=== PATIENT | female | born 1960 | race Caucasian/White ===

== ENCOUNTER → 2019-08-26 15:22 | Outpatient (CLI) | payer OTHER, SELFPAY ==
--- NOTE | ~2019-08-26 | MM_ITS ---
EXAMINATION: MM screening [facility] BI w danna HISTORY: Screening mammogram TECHNIQUE: Craniocaudal and mediolateral oblique 3-D tomosynthesis images were obtained and synthetic 2-D images were generated. CAD analysis was submitted and interpreted. COMPARISON: 07/26/2018 BREAST PARENCHYMAL COMPOSITION: There are scattered areas of fibroglandular density. FINDINGS: There is no evidence of suspicious mass, calcification, or architectural distortion to sugg est malignancy in either breast. There has been no suspicious interval change. IMPRESSION: 1. No mammographic evidence of malignancy. 2. Recommend routine screening mammography in one year. BI-RADS Category 1: Negative Reviewed, dictated and finalized at location D.
== END ==
PROVIDERS: Visit Provider Obstetrics & Gynecology
DX: Z12.31 Encounter for screening mammogram for malignant neoplasm of breast (principal)
CPT/HCPCS: 77063; 77067

== ENCOUNTER → 2020-10-27 15:52 | Outpatient (CLI) | payer OTHER, SELFPAY ==
--- NOTE | ~2020-10-27 | MM_ITS ---
EXAMINATION: MM screening [facility] BI w danna HISTORY: Screening TECHNIQUE: Craniocaudal and mediolateral oblique 3-D tomosynthesis images were obtained and synthetic 2-D images were generated. CAD analysis was submitted and interpreted. COMPARISON: Comparison to multiple prior studies sequentially, with oldest reviewed study dated 07/26. BREAST PARENCHYMAL COMPOSITION: There are scattered areas of fibroglandular density. FINDINGS: There is no evidence of suspicious mass, calcification, or architectural distortion to sugg est malignancy in either breast. There has been no suspicious interval change. IMPRESSION: 1. No mammographic evidence of malignancy. 2. Recommend routine screening mammography in one year. BI-RADS Category 1: Negative Reviewed, dictated and finalized at location A.
== END ==
PROVIDERS: PCP Internal Medicine; Visit Provider Obstetrics & Gynecology
DX: Z12.31 Encounter for screening mammogram for malignant neoplasm of breast (principal)
CPT/HCPCS: 77063; 77067

== ENCOUNTER 2022-05-27 08:31 | Emergency (ER) | payer OTHER, SELFPAY ==
--- NOTE | ~2022-05-27 | XR_ITS ---
EXAMINATION: XR chest 2V DATE: 05/27/2022 09:08 INDICATION: Cough and wheezing TECHNIQUE: Frontal and lateral views of the chest are obtained COMPARISON: None available FINDINGS: The lungs are free of acute opacities. No pleural effusion or pneumothorax. The cardiomedia stinal silhouette is normal. There are bridging osteophytes at multiple levels in the spine, consiste nt with diffuse idiopathic skeletal hyperostosis (DISH). IMPRESSION: 1. No acute cardiopulmonary abnormality. Reviewed, dictated and finalized at location A. S AND SERVICE ADVISOR
[2022-05-27 08:46] VITALS: BP 121/81; PULSE 85; RESP 16; TEMP 36.2; O2SAT 100
--- NOTE | 2022-05-27 08:50 | ED.URI ---
HPI - URI/Sore Throat General Chief Complaint: Upper Respiratory Infection Stated Complaint: HEADACHE/NAUSEA/NOT EATING/DIARRHEA/COUGH Time Seen by Provider: 05/27/22 08:50 Source: patient Mode of arrival: ambulatory Limitations: no limitations History of Present Illness HPI Narrative: Ms. Daniel is a 62-year-old female patient presenting to the clinic today with complaints of headache, nausea, decreased appetite, diarrhea, and cough x4 days. She has also felt fevers and has had some body aches. States she did have a really sore throat however that has improved. She has had a history of asthma in the past. She is a nonsmoker. MD elicited complaint: fever, cough, sore throat, rhinorrhea and nasal congestion Related Data Home Medications Medication Instructions Recorded Confirmed ascorbic acid (vitamin C) 1,000 mg 1 g PO DAILY 09/07/20 05/27/22 tablet atorvastatin 10 mg tablet 10 mg PO DAILY 09/07/20 05/27/22 lisinopril 5 mg tablet 5 mg PO DAILY 09/07/20 05/27/22 loteprednol etabonate 0.2 % eye 1 drp EACH EYE BID 09/07/20 05/27/22 drops,suspension (Alrex) dhlyglpt-whr-avaoa acid 0.4 1 tablet PO DAILY 09/07/20 05/27/22 mg-lycopene 300 mcg-lutein 250 mcg tablet (Centrum Silver) soluble corn fiber 5 gram/5.6 gram 5 g PO USEASDIRECTD 09/07/20 05/27/22 oral powder (FiberCel) spironolactone 100 mg tablet 100 mg PO DAILY 09/07/20 05/27/22 vit C 250 mg-vit E 90 mg-zinc 40 1 tablet PO BID 09/07/20 05/27/22 mg-copper 1 ab-esvtjw-azwttr capsule (PreserVision AREDS-2) bimatoprost 0.03 % eye drops 1 drp EACH EYE USEASDIRECTD 05/27/22 05/27/22 timolol maleate 0.5 % eye drops 1 drp EACH EYE USEASDIRECTD 05/27/22 05/27/22 Allergies Allergy/AdvReac Type Severity Reaction Status Date / Time hydrocodone Allergy Hypotension Verified 05/27/22 08:38 Review of Systems Review of Systems: Pertinent positives per HPI. Patient denies any fever, chills, rash, visual changes, dizziness, shortness of breath, chest pain, palpitations, nausea, vomiting, diarrhea, constipation, abdominal pain, or any urinary issues. [facility] Past Medical History Medical History Arthritis Hypertension Pre-diabetes Surgical History Surgical History H/O hernia repair H/O plastic surgery x 2 2007- breast lift 2009 History of delivery x 1 1984 History of gastric bypass 2004 [place] teeth removed x 1 Family History Family History Father Malignant neoplasm of prostate Diabetes mellitus Hypertension Heart disease Cerebrovascular accident Mother Diabetes mellitus Alzheimer disease Sibling Diabetes mellitus Hypertension Grandparent Diabetes mellitus Social History Social History Smoking status: Never smoker Alcohol intake: never Substance use: never Comments At the time of my signature, I reviewed and agree with the nursing past medical, surgical, social, and family history. There is no relevant family history pertinent to the patient complaint. Exam Narrative: General: Well-developed, overweight, in no apparent distress Head: Normocephalic, atraumatic Eyes: Pupils equally round and reactive to light bilaterally, EOM intact, sclera and conjunctive clear, no discharge, lids normal Ears: TMs intact and dull ear canals clear, no drainage, grossly hearing normal. Nose: Nares patent, clear nasal discharge, moderate inflammation, no sinus tenderness. Mouth: Oral pharynx without lesions or masses, good dentition, MMM. Postnasal drip Neck: Supple, trachea midline, mild enlargement of anterior cervical nodes, no thyroid masses or goiter palpable. Cardio: Regular rate and rhythm, s1 and s2 normal, no murmur appreciated. Resp: Inspiratory and expiratory rhonchi
[2022-05-27] MEDS: ALBUTEROL SULFATE NEB 2.5 MG/3 ML INH INHALATION (09:12)
[2022-05-27] MEDS: IPRATROPIUM BR 0.02% INH SOLN 0.5 MG/2.5 ML VIAL INHALATION (09:12)
== END 2022-05-27 09:43 | disposition home or self-care (01) ==
PROVIDERS: Emergency Provider Nurse Practitioner Family; PCP Hospitalist
DX: J40 Bronchitis, not specified as acute or chronic (principal); B34.9 Viral infection, unspecified; J06.9 Acute upper respiratory infection, unspecified; Z20.822 Contact with and (suspected) exposure to COVID-19; F41.9 Anxiety disorder, unspecified; I10 Essential (primary) hypertension; R73.03 Prediabetes; Z98.84 Bariatric surgery status
CPT/HCPCS: 71046; 87426; 87804; 94640; 99213; C9803; G0463

== ENCOUNTER → 2023-05-21 09:29 | Outpatient (CLI) | payer OTHER, SELFPAY ==
--- NOTE | ~2023-05-21 | XR_ITS ---
AP view of the pelvis and AP and lateral views of the lateral hips Clinical history: Pain Findings: No acute fracture or dislocation is seen. Osseous alignment is anatomic. There is minimal d egenerative change of both hip joints. Soft tissues are unremarkable. Impression: Minimal degenerative change of both hip joints. Reviewed, dictated and finalized at location . ER BREWER Impression: Minimal degenerative change of both hip joints.
== END ==
PROVIDERS: PCP Hospitalist; Visit Provider Anesthesiology Pain Medicine
DX: M16.0 Bilateral primary osteoarthritis of hip (principal)
CPT/HCPCS: 73521

== ENCOUNTER 2023-11-17 11:57 | Emergency (ER) | payer OTHER, SELFPAY ==
--- NOTE | ~2023-11-17 | XR_ITS ---
[[id number] ] INDICATION: Left rib pain TECHNIQUE: Frontal projection of the upper left ribs, frontal projection of the lower left ribs, obli que projection of all the left ribs, frontal inspiratory chest x-ray for interpretation. FINDINGS: There are no displaced rib fractures identified. There are no soft tissue abnormality see n. The lungs are clear. IMPRESSION: 1:No acute displaced rib fractures. Reviewed, dictated and finalized at location B.
[2023-11-17 12:03] VITALS: BP 114/67; PULSE 87; RESP 16; TEMP 36.1; O2SAT 100
--- NOTE | 2023-11-17 12:30 | ED.CHESTPAIN ---
HPI - Chest Pain General Stated Complaint: Left Side Pain Time Seen by Provider: 11/17/23 12:05 Source: patient Mode of arrival: ambulatory Limitations: no limitations History of Present Illness HPI narrative: Debo is a 63-year-old female patient presenting to the clinic today with complaints of left rib pain after fall. She reports she fell over a rolled up rug in her hallway and landed on the left ribs. Is having pain to the anterior/lateral lower left ribs. Did initially have a lot of pain with the bleeding however that has improved but is still having pain and having this set up in a chair when sleeping as she cannot lay on that side. Related Data Home Medications Medication Instructions Recorded Confirmed ascorbic acid (vitamin C) 1,000 mg 1 g PO DAILY 09/07/20 05/27/22 tablet atorvastatin 10 mg tablet 10 mg PO DAILY 09/07/20 05/27/22 lisinopril 5 mg tablet 5 mg PO DAILY 09/07/20 05/27/22 loteprednol etabonate 0.2 % eye 1 drp EACH EYE BID 09/07/20 05/27/22 drops,suspension (Alrex) ngztszwl-fbe-upzyv acid 0.4 1 tablet PO DAILY 09/07/20 05/27/22 mg-lycopene 300 mcg-lutein 250 mcg tablet (Centrum Silver) soluble corn fiber 5 gram/5.6 gram 5 g PO USEASDIRECTD 09/07/20 05/27/22 oral powder (FiberCel) spironolactone 100 mg tablet 100 mg PO DAILY 09/07/20 05/27/22 vit C 250 mg-vit E 90 mg-zinc 40 1 tablet PO BID 09/07/20 05/27/22 mg-copper 1 kw-bqhjox-fmpocs capsule (PreserVision AREDS-2) bimatoprost 0.03 % eye drops 1 drp EACH EYE USEASDIRECTD 05/27/22 05/27/22 timolol maleate 0.5 % eye drops 1 drp EACH EYE USEASDIRECTD 05/27/22 05/27/22 Allergies Allergy/AdvReac Type Severity Reaction Status Date / Time hydrocodone Allergy Hypotension Verified 11/17/23 12:40 Review of Systems Review of Systems: Pertinent positives per HPI. Patient denies any fever, chills, rash, headache, visual changes, dizziness, cough, runny nose, sore throat, shortness of breath, chest pain, palpitations, nausea, vomiting, diarrhea, constipation, abdominal pain, or any urinary issues. COUNTS INCLUDE 234 BEDS AT THE [facility] Past Medical History Medical History Arthritis Hypertension Pre-diabetes Surgical History Surgical History H/O hernia repair H/O plastic surgery x 2 2007- breast lift 2009 History of delivery x 1 1984 History of gastric bypass 2004 [place] teeth removed x 1 Family History Family History Father Malignant neoplasm of prostate Diabetes mellitus Hypertension Heart disease Cerebrovascular accident Mother Diabetes mellitus Alzheimer disease Sibling Diabetes mellitus Hypertension Grandparent Diabetes mellitus Social History Social History Smoking status: Never smoker Alcohol intake: never Substance use: never Living arrangements: with family Comments At the time of my signature, I reviewed and agree with the nursing past medical, surgical, social, and family history. There is no relevant family history pertinent to the patient complaint. Exam Narrative: General: Well-developed, well nourished, in no apparent distress Head: Normocephalic, atraumatic. Chest wall: No bruising or swelling noted, tenderness to palpation over the left anterior/lateral lower ribs, even rise and fall of the chest wall with respirations Cardio: Regular rate and rhythm, s1 and s2 normal, no murmur appreciated. Resp: Clear to auscultation bilaterally, no rhonchi, rales, wheezing or rubs. Extremities: No deformity, no edema, no cyanosis, capillary refill less than 2 seconds, peripheral pulses palpable and strong. Integumentary: [place], warm, and dry, intact without lesion, no rashes. Course Course Emergency Course: Portions of this record may have been created with whitney
== END 2023-11-17 12:44 | disposition home or self-care (01) ==
PROVIDERS: Emergency Provider Nurse Practitioner Family; PCP Hospitalist
DX: S20.222A Contusion of left back wall of thorax, initial encounter (principal); W18.09XA Striking against other object with subsequent fall, initial encounter; M19.90 Unspecified osteoarthritis, unspecified site; I10 Essential (primary) hypertension; R73.03 Prediabetes; Z98.84 Bariatric surgery status
CPT/HCPCS: 71101; 99213; G0463

== ENCOUNTER 2024-04-26 11:57 | Emergency (ER) | payer OTHER, SELFPAY ==
--- NOTE | 2024-04-26 11:59 | ED_ITS ---
HPI - URI/Sore Throat General Chief Complaint: Upper Respiratory Infection Stated Complaint: sorethroat,lt ear pain Time Seen by Provider: 04/26/24 11:59 Source: patient Mode of arrival: ambulatory Limitations: no limitations History of Present Illness HPI Narrative: Cira is a 64-year-old female patient presenting to the clinic today with complaints of left-sided sore throat, left ear pain, and left-sided facial pain since this morning. She reports she does not feels though it strep. No fever, rash, chills, body aches, or other URI symptoms. States that the left side of her head feels bruised. Has pain and sensitivity with touch around her left ear, left forehead, and left scalp. Denies headache or visual changes at this time. MD elicited complaint: sore throat and other (Ear pain, facial pain) Related Data Home Medications Medication Instructions Recorded Confirmed ascorbic acid (vitamin C) 1,000 mg 1 g PO DAILY 09/07/20 05/27/22 tablet atorvastatin 10 mg tablet 10 mg PO DAILY 09/07/20 05/27/22 lisinopril 5 mg tablet 5 mg PO DAILY 09/07/20 05/27/22 loteprednol etabonate 0.2 % eye 1 drp EACH EYE BID 09/07/20 05/27/22 drops,suspension (Alrex) uexicurj-oxw-myufa acid 0.4 1 tablet PO DAILY 09/07/20 05/27/22 mg-lycopene 300 mcg-lutein 250 mcg tablet (Centrum Silver) soluble corn fiber 5 gram/5.6 gram 5 g PO USEASDIRECTD 09/07/20 05/27/22 oral powder (FiberCel) spironolactone 100 mg tablet 100 mg PO DAILY 09/07/20 05/27/22 vit C 250 mg-vit E 90 mg-zinc 40 1 tablet PO BID 09/07/20 05/27/22 mg-copper 1 jc-qelzfg-zxxker capsule (PreserVision AREDS-2) bimatoprost 0.03 % eye drops 1 drp EACH EYE USEASDIRECTD 05/27/22 05/27/22 timolol maleate 0.5 % eye drops 1 drp EACH EYE USEASDIRECTD 05/27/22 05/27/22 Allergies Allergy/AdvReac Type Severity Reaction Status Date / Time hydrocodone Allergy Hypotension Verified 11/17/23 12:40 Review of Systems Review of Systems: Pertinent positives per HPI. Patient denies any fever, chills, rash, headache, visual changes, dizziness, cough, shortness of breath, chest pain, palpitations, nausea, vomiting, diarrhea, constipation, abdominal pain, or any urinary issues. [facility] Past Medical History Medical History Arthritis Hypertension Pre-diabetes Surgical History Surgical History H/O hernia repair H/O plastic surgery x 2 2007- breast lift 2009 History of delivery x 1 1984 History of gastric bypass 2005 [place] teeth removed x 1 Family History Family History Father Malignant neoplasm of prostate Diabetes mellitus Hypertension Heart disease Cerebrovascular accident Mother Diabetes mellitus Alzheimer disease Sibling Diabetes mellitus Hypertension Grandparent Diabetes mellitus Social History Social History Smoking status: Never smoker Alcohol intake: never Substance use: never Living arrangements: with family Comments At the time of my signature, I reviewed and agree with the nursing past medical, surgical, social, and family history. There is no relevant family history pertinent to the patient complaint. Exam Narrative: General: Well-developed, well nourished, in no apparent distress Head: Normocephalic, atraumatic, no rash, tender to palpation over the external anterior and posterior ear, left side forehead, around left orbit, and to the left side of the scalp. Eyes: Pupils equally round and reactive to light bilaterally, EOM intact, sclera and conjunctive clear, no discharge, lids normal Ears: TMs intact and clear, ear canals clear, no drainage, grossly hearing normal. Nose: Nares patent, no discharge, no inflammation, no sinus tenderness. Mouth: Oral pharynx without lesions or masses, good dentition, MMM. Neck: Supple, trachea midline, no enlargement of anterior or posterior cervical nodes, no thyroid masses or goiter palpable. Cardio: Regular rate and rhythm, s1 and s2 normal, no murmur appreciated. Resp: Clear to auscultation bilaterally, no rhonchi, rales, wheezing or rubs Course Course Emergency Course: Portions of this record may have been created with voice recognition software. Level of Care: Express Care Visit Vital Signs Vital signs: Vital Signs Temperature 36.3 C L 04/26/24 12:19 Pulse Rate 85 04/26/24 12:19 Respiratory Rate 16 04/26/24 12:19 Blood Pressure 114/79 04/26/24 12:19 Pulse Oximetry 100 04/26/24 12:19 Temperature 36.3 C L 04/26/24 12:19 Pulse Rate 85 04/26/24 12:19 Respiratory Rate 16 04/26/24 12:19 Blood Pressure 114/79 04/26/24 12:19 Pulse Oximetry 100 04/26/24 12:19 Vital signs reviewed MDM - URI/Sore Throat MDM Narrative Medical decision making narrative: At the time of visit patient is resting comfortably on the exam table. Patient appears to be nontoxic. Plan: Patient declined strep test. No obvious rash but patient is experiencing some facial paresthesia. Will send in prescription for prednisone and have her follow-up with her primary care doctor next week. She is to go to the emergency room if symptoms worsen. Supportive measures were discussed with the patient and they voiced understanding discharge instructions and agrees to treatment plan. Return precautions reviewed Differential Diagnosis Differential diagnosis: Likely upper respiratory infection, otitis media, sinusitis (Shingles, paresthesia, mastoiditis, otitis externa, dental infection), viral infection, bronchitis, influenza, pharyngitis and other (COVID) Discharge Plan Discharge Clinical Impression: Facial paresthesia Patient Disposition: Home, Self-Care Condition: Stable Instructions: Antibiotic Form, Paresthesia (ED) Additional Instructions: Take prescription medications only as prescribed-redness Increase fluids and stay well hydrated Tylenol/motrin for pain/fever Flonase and OTC antihistamines such as Claritin or Zyrtec as directed Go to the ED if you develop a worsening in your condition- high fever not controlled by Tylenol or Motrin, vision changes, worsening pain, dehydration, weakness, lethargy, shortness of breath, or chest pain. Follow up with your PCP in 3-5 days if symptoms persist. Prescriptions: New prednisone 20 mg tablet 40 mg PO DAILY 5 Days Qty: 10 0RF No Action bimatoprost 0.03 % drops 1 drp EACH EYE USEASDIRECTD timolol maleate 0.5 % drops 1 drp EACH EYE USEASDIRECTD azithromycin 250 mg tablet See Rx Instructions .ROUTE .COMPLEX Qty: 6 0RF Rx Instructions: For 250 mg dose pack: take 500 mg today (day 1), then 250 mg for 4 days (days 2-5) prednisone 20 mg tablet 40 mg PO DAILY 5 Days Qty: 10 0RF albuterol sulfate 90 mcg/actuation HFA aerosol inhaler 2 puff inhalation Q4-6H PRN (Reason: shortness of breath or wheezing) 30 Days Qty: 8.5 0RF atorvastatin 10 mg tablet 10 mg PO DAILY lisinopril 5 mg tablet 5 mg PO DAILY PreserVision AREDS-2 250-90-40-1 mg capsule 1 tablet PO BID ascorbic acid (vitamin C) 1,000 mg tablet 1 g PO DAILY FiberCel 5 gram/5.6 gram powder 5 g PO USEASDIRECTD Centrum Silver 0.4-300-250 mg-mcg-mcg tablet 1 tablet PO DAILY spironolactone 100 mg tablet 100 mg PO DAILY Alrex 0.2 % drops,suspension 1 drp EACH EYE BID Follow-up/Referrals: Hannah,MD Daniel [Primary Care Provider] - Time of Disposition: 12:30 Quality NIHSS Nursing Documentation ED NIHSS nursing documentation: reviewed/agree
[2024-04-26 12:19] VITALS: BP 114/79; PULSE 85; RESP 16; TEMP 36.3; O2SAT 100
== END 2024-04-26 12:35 | disposition home or self-care (01) ==
PROVIDERS: Emergency Provider Nurse Practitioner Family; PCP Hospitalist
DX: R20.2 Paresthesia of skin (principal); I10 Essential (primary) hypertension; R73.03 Prediabetes; M19.90 Unspecified osteoarthritis, unspecified site; Z98.84 Bariatric surgery status
CPT/HCPCS: 99213; G0463

== ENCOUNTER 2024-10-12 09:33 | Emergency (ER) | payer OTHER, SELFPAY ==
[2024-10-12 09:38] VITALS: BP 112/73; PULSE 78; RESP 18; TEMP 36.3; O2SAT 100
--- NOTE | 2024-10-12 09:38 | ED_ITS ---
HPI - Ear Problem General Chief complaint: Ear Stated complaint: Ear Pain Source: patient and RN notes reviewed Mode of arrival: ambulatory Limitations: no limitations History of Present Illness HPI Narrative: 64year-old female presents Express Care complaining of left ear pain for 1 week. Patient denies any fevers, body aches, chills, upper respiratory symptoms. Patient is using mwjp-apa-ovblwem ear drops as needed for pain along with Tylenol, ibuprofen, as her as needed tramadol with some relief. Patient said this is occurred before has subsided on its own. Patient denies any discharge from her ear.. Patient denies any dizziness, lightheadedness, or syncope. Patient feels like the pain is now her left jaw all and behind her left ear. Patient just saw the dentist did not believe it was a dental problem. Related Data Home Medications ?Medication ?Instructions ?Recorded ?Confirmed ?Last Taken ?Type ascorbic acid (vitamin C) 1,000 mg 1 g PO DAILY 09/07/20 04/26/24 Unknown History tablet atorvastatin 10 mg tablet 40 mg PO DAILY 09/07/20 10/12/24 Unknown History loteprednol etabonate 0.2 % eye 1 drp EACH EYE BID 09/07/20 10/12/24 Unknown History drops,suspension (Alrex) cjqxhqhl-wgb-arbzf acid 0.4 1 tablet PO DAILY 09/07/20 10/12/24 Unknown History mg-lycopene 300 mcg-lutein 250 mcg tablet (Centrum Silver) soluble corn fiber 5 gram/5.6 gram 5 g PO USEASDIRECTD 09/07/20 04/26/24 Unknown History oral powder (FiberCel) vit C 250 mg-vit E 90 mg-zinc 40 1 tablet PO BID 09/07/20 10/12/24 Unknown History mg-copper 1 hw-bltywb-mjtoqm capsule (PreserVision AREDS-2) bimatoprost 0.03 % eye drops 1 drp EACH EYE USEASDIRECTD 05/27/22 10/12/24 Unknown History timolol maleate 0.5 % eye drops 1 drp EACH EYE USEASDIRECTD 05/27/22 10/12/24 Unknown History nifedipine 30 mg tablet,extended 30 mg PO DAILY 04/26/24 10/12/24 Unknown History release tirzepatide 15 mg/0.5 mL 15 mg subcut WEEKLY 04/26/24 10/12/24 Unknown History subcutaneous pen injector (Jabariunmalcolmro) ascorbic acid (vitamin C) 1,000 mg 1 g PO DAILY 10/12/24 10/12/24 Unknown History tablet (C-1000) polydextrose 2.5 gram chewable 1,000 g PO DAILY 10/12/24 10/12/24 Unknown History tablet (FiberWell) Allergies Allergy/AdvReac Type Severity Reaction Status Date / Time hydrocodone Allergy Hypotension Verified 10/12/24 09:38 NSAIDS (Non-Steroidal AdvReac Unknown Verified 10/12/24 09:38 Anti-Inflamma dermabond Allergy Mild Unknown Uncoded 10/12/24 09:41 Review of Systems Review of Systems: CONSTITUTIONAL: Denies fever, chills, or sweats. EYES: Denies visual changes, redness, or discharge. ENT: Denies rhinorrhea, congestion, sore throat,. Positive for otalgia CARDIOVASCULAR: Denies chest pain, palpitations, or edema. RESPIRATORY: Denies cough or dyspnea. GASTROINTESTINAL: Denies abdominal pain, nausea, vomiting, or diarrhea. GENITOURINARY: Denies dysuria or hematuria. SKIN: Denies rash or itching. MUSCULOSKELETAL: Denies back pain, joint pain, or myalgia. NEUROLOGIC: Denies headache, numbness, or weakness. PSYCHIATRIC: Denies anxiety or depression. All other systems reviewed are negative, except as documented in HPI. [facility] Past Medical History Medical History Arthritis Pre-diabetes Hypertension Surgical History Surgical History History of gastric bypass 2005 H/O hernia repair H/O plastic surgery x 2 2007- breast lift 2009 Pala teeth removed x 1 History of delivery x 1 1983 Family History Family History Father Malignant neoplasm of prostate Diabetes mellitus Hypertension Heart disease Cerebrovascular accident Mother Diabetes mellitus Alzheimer disease Sibling Diabetes mellitus Hypertension Grandparent Diabetes mellitus Social History Social History Smoking status: Never smoker Alcohol intake: never Substance use: never Living arrangements: with family Comments At the time of my signature, I reviewed and agree with the nursing past medical, surgical, social, and family history. There is no relevant family history pertinent to the patient complaint. Exam Narrative: GENERAL: This is a well-nourished, well-developed adult, in no apparent distress. They are non ill-appearing, nontoxic appearing. HEAD: normocephalic, atraumatic. EYES: Sclera clear/white. Conjunctiva normal. Vision is grossly intact. Extraocular movements intact EARS: External ears normal, auditory canals clear and without drainage, TMs normal without perforation. Hearing grossly intact. No swelling, redness,or tenderness to the mastoid. NOSE: External nose normal with no obvious nasal discharge, nasal turbinates without redness, no rhinorrhea. THROAT: Mucous membranes moist, posterior pharynx clear, without erythema or swelling. Uvula midline. NECK: Neck supple, non-tender without lymphadenopathy, masses or thyromegaly. CARDIOVASCULAR: Regular rate and rhythm without murmurs, gallops, or rubs. RESPIRATORY: Clear to auscultation. Breath sounds equal bilaterally. No wheezes, rales, or rhonchi. SKIN: warm, Dry, intact with no suspicious lesions or rash, good texture and turgor. NEURO: awake, alert, and oriented to person, place and time. There were no obvious focal neurologic abnormalities. EXTREMITIES: No joint tenderness, effusion, or edema noted. Course Course Emergency Course: Portions of this record may have been created with voice recognition software Level of Care: Express Care Visit Vital Signs Vital signs: Vital Signs Temperature 97.4 F L 10/12/24 09:38 Pulse Rate 78 10/12/24 09:38 Respiratory Rate 18 10/12/24 09:38 Blood Pressure 112/73 10/12/24 09:38 Pulse Oximetry 100 10/12/24 09:38 Oxygen Delivery Room Air 10/12/24 09:38 Temperature 97.4 F L 10/12/24 09:38 Pulse Rate 78 10/12/24 09:38 Respiratory Rate 18 10/12/24 09:38 Blood Pressure 112/73 10/12/24 09:38 Pulse Oximetry 100 10/12/24 09:38 Oxygen Delivery Room Air 10/12/24 09:38 Reviewed Medical Decision Making MDM Narrative Medical decision making narrative: No evidence of infection in the patient's left ear. It is possible her symptoms may be signs of TMJ to the left jaw. Patient just saw the dentist within not do any imaging of her jaw. Advised patient to follow-up with ENT given the recurrence of pain to the same area. Discussed physical exam findings. Advised supportive measures and signs/symptoms to go to the ER. Pt is appropriate for outpt treatment and f/u. Differential Diagnosis Differential Diagnosis: Otitis media, otitis externa, TMJ Vital Signs Vital Signs: Vital Signs Temperature 97.4 F L 10/12/24 09:38 Pulse Rate 78 10/12/24 09:38 Respiratory Rate 18 10/12/24 09:38 Blood Pressure 112/73 10/12/24 09:38 Pulse Oximetry 100 10/12/24 09:38 Oxygen Delivery Room Air 10/12/24 09:38 Temperature 97.4 F L 10/12/24 09:38 Pulse Rate 78 10/12/24 09:38 Respiratory Rate 18 10/12/24 09:38 Blood Pressure 112/73 10/12/24 09:38 Pulse Oximetry 100 10/12/24 09:38 Oxygen Delivery Room Air 10/12/24 09:38 Critical Care Time Critical Care Time Critical Care Time: No Discharge Plan Discharge Clinical Impression: Ear pain, left Patient Disposition: Home Condition: Stable Instructions: Temporomandibular Disorder (ED), Earache (ED) Additional Instructions: There is no signs of infection in your ear. Please follow-up with an ENT for further evaluation of your pain. May take Tylenol or ibuprofen as needed for pain. You may use clxu-ltk-nnsvjsw earache drops as needed for pain. Please follow-up with your primary care provider in 1 week. If your symptoms worsen you have any other concerns please go to the ER immediately. Patient Language: Greek Prescriptions: No Action bimatoprost 0.03 % drops 1 drp EACH EYE USEASDIRECTD timolol maleate 0.5 % drops 1 drp EACH EYE USEASDIRECTD albuterol sulfate 90 mcg/actuation HFA aerosol inhaler 2 puff inhalation Q4-6H PRN (Reason: shortness of breath or wheezing) 30 Days Qty: 8.5 0RF prednisone 20 mg tablet 40 mg PO DAILY 5 Days Qty: 10 0RF nifedipine 30 mg tablet extended release 30 mg PO DAILY Mounjaro 15 mg/0.5 mL pen injector 15 mg SUBCUT WEEKLY ascorbic acid (vitamin C) [C-1000] 1,000 mg tablet 1 g PO DAILY FiberWell 2.5 gram tablet,chewable 1,000 g PO DAILY atorvastatin 10 mg tablet 40 mg PO DAILY PreserVision AREDS-2 250-90-40-1 mg capsule 1 tablet PO BID ascorbic acid (vitamin C) 1,000 mg tablet 1 g PO DAILY FiberCel 5 gram/5.6 gram powder 5 g PO USEASDIRECTD Centrum Silver 0.4-300-250 mg-mcg-mcg tablet 1 tablet PO DAILY Alrex 0.2 % drops,suspension 1 drp EACH EYE BID Follow-up/Referrals: Nati Falcon MD [Physician] - (chronic left pain without infection) PHYSICIAN,MANAGER OF [employer] [Primary Care Provider] - Time of Disposition: 09:59
== END 2024-10-12 10:09 | disposition home or self-care (01) ==
DX: H92.02 Otalgia, left ear (principal); I10 Essential (primary) hypertension; M19.90 Unspecified osteoarthritis, unspecified site; R73.03 Prediabetes; Z98.84 Bariatric surgery status
CPT/HCPCS: 99211; G0463

== ENCOUNTER 2025-01-12 13:01 | Emergency (ER) | payer MEDICARE, SELFPAY ==
[2025-01-12] VITALS (12 sets, daily range): BP systolic 104–129; BP diastolic 52–73; PULSE 66–92; RESP 12–21; TEMP 36.6; O2SAT 100
--- NOTE | ~2025-01-12 | XR_ITS ---
XR wrist RT 2V 01/12/2025 15:33 Indication: Right wrist pain after fall Procedure: 2 views right wrist Comparison: No prior studies for comparison. Findings: There is an impaction fracture which is comminuted involving the distal radial metaphysis. Mild dorsal tilt. There is ulnar styloid avulsion fracture. Osteopenia. Mild polyarticular osteoarthr itis. Impression: 1: Comminuted displaced impaction fracture distal radial metaphysis. 2: Ulnar styloid avulsion fracture. Reviewed, dictated and finalized at location A. Impression: 1: Comminuted displaced impaction fracture distal radial metaphysis. 2: Ulnar styloid avulsion fracture.
--- NOTE | ~2025-01-12 | XR_ITS ---
[id number] 01/12/2025 15:34 Indication: Left leg pain after fall Procedure: 2 views left knee Comparison: No prior studies for comparison. Findings: There is an oblique displaced distal femoral diaphyseal fracture with dorsal angulation and ventral displacement. Large amount ventral soft tissue swelling. There is a Left knee arthroplasty w hich is well seated. Impression: 1: Old oblique displaced distal femoral diaphyseal fracture with dorsal angulation and ventral displa cement. Reviewed, dictated and finalized at location A. Impression: 1: Old oblique displaced distal femoral diaphyseal fracture with dorsal angulat ion and ventral displacement.
--- NOTE | ~2025-01-12 | CT_ITS ---
History: Fall PROCEDURE: CT cervical spine without intravenous contrast. PROCEDURE:CT head without contrast. COMPARISON: None TECHNIQUE: Multiple contiguous axial images of the CERVICAL SPINE were performed without the administration of i ntravenous contrast. DLP: 238.6 mGy-cm TECHNIQUE: Axial imaging of the HEAD performed from the skull base to the vertex without IV contrast. Sagittal a nd coronal reformations obtained. DLP: 605 mGy-cm FINDINGS CT CERVICAL SPINE: Straightening and slight reversal of the normal curvature of the cervical spine is identified, likely muscular in origin. Degenerative disease is present, with osteophyte formation, disc space narrowing, endplate changes an d vacuum phenomena. Subchondral cyst formation is also noted, as is severe facet arthropathy. No acute fractures are present. The bilateral lung apices are unremarkable. No soft tissue abnormality is appreciated The airway is patent. FINDINGS CT HEAD: The ventricles are normal in size, shape and position. There is no mass, mass effect or midline shift. There is no abnormal extra-axial fluid collection or intracranial hemorrhage. Visualized paranasal sinuses are clear. The mastoid air cells are well aerated. No acute displaced fractures within the overlying cranium. IMPRESSION CT CERVICAL SPINE: Straightening and slight reversal of the normal curvature of the cervical spine, likely muscular in o rigin. Degenerative disease, without acute fracture. IMPRESSION CT HEAD: No acute intracranial hemorrhage or suspicious mass effect. Reviewed, dictated and finalized at location A. IMPRESSION CT CERVICAL SPINE: Straightening and slight reversal of the normal curvature of the cervical spine , likely muscular in origin. Degenerative disease, without acute fracture. IMPRESSION CT HEAD: No acute intracranial hemorrhage or suspicious mass effect. IMPRESSION CT CERVICAL SPINE: Straightening and slight reversal of the normal curvature of the cervical spine , likely muscular in origin. Degenerative disease, without acute fracture. IMPRESSION CT HEAD: No acute intracranial hemorrhage or suspicious mass effect.
--- OUTSIDE RECORDS SUMMARY | 2025-01-12 14:04 | XMS_ITS | Referral Summary ---
Author Organization [facility] Address [address] [place] [id number] Care Team Providers Care Strapper And Buffer Name Role Phone Arcadio Kinney Unavailable Alicia Long Unavailable [phone] Daniel Young MD Primary Care Provider [phone] Encounters Date Type Department Care Team Description 01/07/2025 Results Follow-Up [facility] [address] [phone] Quique Flores NP Comprehensive metabolic panel, 48 HR Holter Monitor 01/06/2025 2:20 PM CDT - 01/06/2025 11:59 PM CDT Hospital Encounter [facility] [address] [place] [address] Encounter for screening mammogram for malignant neoplasm of breast Discharge Disposition: Discharge to home or self care 01/01/2025 12:15 PM CDT - 01/01/2025 11:59 PM CDT Hospital Encounter [facility] [address] [place] [address] Fluttering heart Discharge Disposition: Discharge to home or self care 12/24/2024 1:00 PM CDT Office Visit [facility] [address] [phone] Quique Flores NP Fluttering heart (Primary Dx); Hypertension associated with diabetes (HCC); BMI 29.0-29.9,adult 12/23/2024 Nurse Triage [facility] [address] [place] [address] Daniel Young MD 11/25/2024 Results Follow-Up [facility] [address] [facility] [address] [place] [address] Samina Swenson NP Pap, reflex HPV, Screening Mammogram Bilateral W Phan 11/20/2024 11:00 AM CDT Office Visit [facility] Care at [address] [phone] Samina Swenson NP Well woman exam (Primary Dx); Encounter for screening mammogram for malignant neoplasm of breast from Last 3 Months Allergies Active Allergy Reactions Criticality Noted Date Comments Hydrocodone Other (See comments),Hypotensio n High 01/25/2021 Insomnia, loss of appetite Nsaids (Non-Steroidal Anti-Inflammatory Drug) Other (See comments) Low 11/15/2021 Gastric bypass Tissue Adhesive Blisters High 12/31/2022 Dermabond Medications B.ani/L.aci/L.jelena/ L.plan/L.Vega (PROBIOTIC FORMULA ORAL) Take by mouth daily Active wynlg-dx-4-dha-epa -phospho-ast 1,[id number] mg capsule Take by mouth Active vit F-E-stmhxh-zinc-cammie tein 226-90-0.8-5 mg capsule Take 1 capsule by mouth 2 (two) times a day With food. Active ascorbic acid (vitamin C) 1,000 mg tablet Take 1 tablet (1,000 mg total) by mouth daily Active inulin (FIBER GUMMIES ORAL) Take 2 each by mouth daily Active collagen/biotin/as corbic acid (COLLAGEN 1500 PLUS C ORAL) Take 1 each by mouth daily Active timolol (TIMOPTIC) 0.5 % ophthalmic solution Administer 1 drop into both eyes every morning 02/28/20 23 Active azelastine (OPTIVAR) 0.05 % ophthalmic solutionIndication s:Allergic Conjunctivitis Administer 1 drop into both eyes daily Active bimatoprost (LUMIGAN) 0.03 % ophthalmic drops INSTILL 1 DROP INTO BOTH EYES EVERY NIGHT AT BEDTIME 02/09/20 24 Active loteprednol (LOTEMAX) 0.5 % ophthalmic suspension INSTILL 1 DROP INTO BOTH EYES EVERY DAY 02/09/20 24 Active magnesium glycinate 100 mg tablet Take 200 mg by mouth daily Active spironolactone (ALDACTONE) 100 mg tabletIndications: Essential hypertension Take 1 tablet (100 mg total) by mouth daily 04/01/20 24 Active atorvastatin (LIPITOR) 40 mg tabletIndications: Mixed hyperlipidemia Take 1 tablet (40 mg total) by mouth daily 04/01/20 24 Active blood-glucose sensor (Dexcom G7 Sensor) device CHANGE EVERY 10 DAYS 9 each 1 06/12/19 25 Active traMADoL (ULTRAM) 50 mg tabletIndications: Chronic left-sided low back pain with left-sided sciatica Take 1 tablet (50 mg total) by mouth every 6 (six) hours as needed for pain 60 tablet 08/05/19 25 Active tirzepatide (Mounjaro) 15 mg/0.5 mL pen injector injectionIndicatio ns:Type 2 diabetes mellitus without complication, without long-term current use of insulin (HCC) INJECT 15 MG UNDER THE SKIN EVERY 7 DAYS 6 mL 1 10/06/19 25 026 Active cholecalciferol (VITAMIN D-3) 2000 unit tablet Take by mouth daily 50mcg with food Active multivit-min/iron/ FA/vit K/lut (CENTRUM SILVER WOMEN ORAL) Take by mouth daily OTC Active NIFEdipine CC 30 mg 24 hr tabletIndications: Essential hypertension Take 1 tablet by mouth once daily 90 tablet 11/27/19 25 Active coenzyme Q10 200 mg capsule Take 1 capsule (200 mg total) by mouth daily Active coenzyme Q10 10 mg capsule Take 1 capsule (10 mg total) by mouth daily 025 Discontin ued(Alter yuridia therapy) loteprednol (LOTEMAX) 0.5 % drops,gel 1 drop 4 (four) times a day 025 Discontin ued(Patie nt Reported) Active Problems Problem Noted Date Diagnosed Date Well woman exam 11/20/2024 Assessment & Plan (11/20/2024 11:13 AM CDT): Doing well, call with any wallpaperer concerns. Continue monthly self-breast exams. We did discuss at length the difference between postmenopausal bleeding and potential bleeding from a UTI/urethra. Okay to monitor at this time, with the understanding that if it occurs again she will call to have an order for pelvic ultrasound placed. Ocular migraine 10/08/2024 Assessment & Plan (10/08/2024 4:40 PM CDT): Patient reports few episodes of scintillating scotomas; follows with optometry for further evaluation management Personal history of colonic polyps 06/21/2023 History of reverse total rep lacement of right shoulder joint 03/14/2023 Coccygalgia 12/27/2022 Diabetes insipidus 12/18/2022 Type 2 diabetes mellitus wit hout complication, without long-term current use of insulin 04/12/2022 Assessment & Plan (10/08/2024 4:39 PM CDT): Stable, well controlled, A1c at goal; good relief current medication with no significant side effects Continue tirzepatide 15 mg weekly Assessment & Plan (10/01/2023 2:35 PM CDT): Stable, well controlled; A1c at goal; using Dexcom to monitor blood sugar changes with diet Will continue monitor 15 mg weekly Assessment & Plan (04/01/2023 4:16 PM CDT): Stable, well controlled; A1c at goal Start Mounjaro 2.5 mg weekly Assessment & Plan (11/26/2022 12:57 PM CDT): Stable, generally well controlled; last A1c was 6.6; at target Patient continues to monitor diet, reports blood sugars remain elevated Patient resting started will go be for weight loss Continue Wegovy as given for weight loss; if improves A1c control; consider continuing move lb for long-term treatment Assessment & Plan (04/12/2022 9:59 AM CDT): Stable, well controlled with slow increase in A1c, no current medications Last A1c was 6.8 Will continue to monitor closely, if A1c increases above 7.0; would consider starting medications Continue courage low-carbohydrate diet; continue to work on weight Asymptomatic varicose veins of both lower extrem ities 02/21/2022 Assessment & Plan (11/28/2023 1:29 PM CDT): Impression: Patient underwent staged bilateral lower extremity EVLT with stab phlebectomies in 2022. She has developed new varicose veins to her right medial ankle and left posterior calf and remains asymptomatic. She does not utilize compression therapy consistently. Plan: No surgical intervention recommended at this time. - recommend patient to utilize medical grade compression stockings 20 30 mmHg. Prescription given to patient. -patient to follow-up on an as-needed basis. Assessment & Plan (10/22/2022 11:43 AM CDT): Patient following up postoperatively status post a right lower extremity EVLT with 21 stab phlebectomies on 09/14/2022. She previously had her left lower extremity completed. Denies any current complaints or concerns. Stab incisions are well healed. Venous duplex is negative for acute DVT. She can follow-up as needed. Assessment & Plan (08/23/2022 4:24 PM CDT): Doing well status post left GSV ablation and stab phlebectomies. Risks benefits alternatives discussed for right GSV ablation and stab phlebectomies. She wished to proceed. We will get her scheduled in our office based procedure room. Assessment & Plan (04/12/2022 9:57 AM CDT): Stable, not well controlled: follows with vascular surgery for further evaluation and management Continues to have pain and discomfort at side of varicose veins; scheduled for ablation Assessment & Plan (03/20/2022 7:40 AM CDT): Bilateral lower extremity CEAP C3 disease. Risks benefits and alternatives to GSV ablation and discussed, risks including bleeding, infection, DVT/PE, need for further surgery. We will do this staged starting with her left lower extremity followed by her right lower extremity a couple weeks later. We will get her scheduled in our office based procedure room. Assessment & Plan (02/21/2022 12:36 PM CDT): Left lower extremity CEAP C3 disease with symptomatic varicosities. Continue compression therapy. She will follow-up in 2-3 weeks with a left lower extremity reflux development specialist study pending this she is likely going to need to GSV ablation stab phlebectomies. Degenerative lumbar spinal stenosis 03/29/2021 Assessment & Plan (10/08/2024 4:39 PM CDT): Stable, generally well controlled; continue tramadol 50 mg p.r.n. Lumbar radiculopathy 03/29/2021 Assessment & Plan (04/01/2023 4:15 PM CDT): Left-sided sciatica secondary to spinal stenosis; takes tramadol p.r.n.; follows with pain management for lumbar injections Assessment & Plan (11/26/2022 12:58 PM CDT): Genera lly well controlled, uses tramadol p.r.n., generally needs in spurts after exacerbation of low back pain; then can go significant duration that eating medication Continue tramadol 50 mg p.r.n. Chronic left-sided low back pain with left-sided sciatica 03/29/2021 Assessment & Plan (10/01/2023 2:34 PM CDT): Stable, continues to follow with spinal surgery; following with pain management; if no relief with lumbar injections; will potentially be evaluated for surgical intervention Continue OTC treatments for mild pain; tramadol 50 mg for severe pain Spondylolisthesis at L4-L5 level 03/29/2021 Primary osteoarthritis of knees, bilateral 06/06 Assessment & Plan (04/12/2022 10:00 AM CDT): Status post bilateral TKA Dyslipidemia associated with type 2 diabetes pascale litus 09/10/2017 Assessment & Plan (10/08/2024 4:38 PM CDT): Stable, well controlled, LDL at goal Continue atorvastatin 40 mg daily; encourage low-fat high-fiber diet Assessment & Plan (04/01/2024 8:53 AM CDT): Chronic, stable Lipid panel at goal Continue Atorvastatin 40 mg daily Assessment & Plan (11/28/2023 1:30 PM CDT): Impression: Chronic and stable. Plan: Continue atorvastatin. Assessment & Plan (10/01/2023 2:32 PM CDT): Last LDL was above goal; increased dose of atorvastatin; will recheck lipid panel at follow-up appointment Continue atorvastatin 40 mg daily Assessment & Plan (04/01/2023 4:14 PM CDT): Mildly elevated total and LDL cholesterol; ASCVD risk score is 11.1%; intermediate Increase atorvastatin to 40 mg daily Assessment & Plan (11/26/2022 12:55 PM CDT): Stable, LDL mildly above target; encouraged continued work towards low-fat high- fiber diet Continue atorvastatin 20 mg daily Assessment & Plan (08/23/2022 4:24 PM CDT): Stable continue Lipitor 20 mg. Assessment & Plan (04/12/2022 9:58 AM CDT): Not well controlled, elevated cholesterol levels on prior labs; atorvastatin increased by prior physician Continue atorvastatin 20 mg daily, recheck lipid panel Assessment & Plan (03/20/2022 7:40 AM CDT): Lipitor Assessment & Plan (02/21/2022 12:36 PM CDT): Lipitor Hypertension associated with diabetes 09/10/2017 Assessment & Plan (12/24/2024 1:40 PM CDT): See above. Orders: Comprehensive metabolic panel; Future Assessment & Plan (10/08/2024 4:39 PM CDT): Stable, well controlled, blood pressure at goal; continue nifedipine 30 mg daily, spironolactone 100 mg daily Assessment & Plan (04/01/2024 8:53 AM CDT): Chronic, stable BP at goal at visit; 106/70 Continue Spironolactone 100 mg daily and Nifedipine 30 mg daily Assessment & Plan (11/28/2023 1:30 PM CDT): Impression: Chronic and stable. Plan: Continue nifedipine spironolactone Assessment & Plan (10/01/2023 2:35 PM CDT): Stable, well controlled, blood pressure at goal Continue nifedipine 30 mg daily, spironolactone 100 mg daily Assessment & Plan (04/01/2023 4:15 PM CDT): Stable, well controlled; blood pressure at goal; patient reports home blood pressures are at goal Continue spironolactone 100 mg daily Assessment & Plan (11/26/2022 12:56 PM CDT): Stable, well controlled; blood pressure at target today; no chest pain or headaches Continue spironolactone 100 mg daily Assessment & Plan (08/23/2022 4:24 PM CDT): Stable continue Aldactone 100 mg. Assessment & Plan (04/12/2022 9:58 AM CDT): Stable, well controlled; blood pressure at target Continue spironolactone 100 mg daily, Assessment & Plan (03/20/2022 7:40 AM CDT): Aldactone S/P laparoscopic surgery 04/16/2016 Resolved Problems Problem Noted Date Diagnosed Date Resolved Date Encounter for screening colonoscopy 06/21/2023 04/01/2024 Rotator cuff arthropathy of right shoulder 12/14/2022 04/01/2024 Rotator cuff tear arthropath y of right shoulder 11/29/2022 04/01/2024 History of total knee arthroplasty, left 12/24/2021 04/01/2024 Primary osteoarthritis of left knee 05/11/2021 04/01/2024 DDD (degenerative disc disease), lumbar 03/29/2021 04/01/2024 Pre-operative anxiety 03/29/20212023 Hx of total knee arthroplasty, right 11/16/2020 10/17/2021 Encounter for screening colonoscopy 05/04/2020 2021 Overview (05/04/2020): Added automatically from request for surgery [id number] Carpal tunnel syndrome, bilateral 10/22/2017 04/01/2024 Overview (10/22/2017): Added automatically from request for surgery [id number] Class 2 severe obesity due t o excess calories with serious comorbidity and body mass index (BMI) of 36.0 to 36.9 in adult 09/10/2017 Assessment & Plan (10/01/2023 2:34 PM CDT): Stable, improving; weight is decreasing; good relief with monitor Patient is also working on improving diet, eating better; encouraged continued dietary changes; continue majora 15 mg weekly Assessment & Plan (04/01/2023 4:15 PM CDT): Stable, generally well controlled, the patient reports recent weight gain after stopping Ozempic Given elevated blood sugars, start Mounjaro 2.5 mg weekly Assessment & Plan (11/26/2022 12:57 PM CDT): Patient only recently started weight loss clinic; beginning of weight loss, started program for evaluation as well as Wegovy weekly Continue to monitor Assessment & Plan (04/12/2022 10:00 AM CDT): Weight is stable from prior appointments; patient had gastric bypass performed 18 years ago Encouraged continued low-calorie diet, encourage activity as tolerated Benign hypertension 10/24/2013 09/11/19 18 Overview (09/14/2016): BENIGN HYPERTENSION Pure hypercholesterolemia 10/24/2013 Overview (09/14/2016): PURE HYPERCHOLESTEROLEM Immunizations Immunization Administration Dates Next Due COVID-19 mRNA (Sweetie High) 0.3 m L (30 mcg) vaccine (12 years and up) 03/10/2024 Influenza, Quadrivalent, Spl it, Preservative Free, Intramuscular 02/26/2020,02/13/2019,03/02/2018,02/14 Influenza, Trivalent, Cell Culture-based MDCK, Preservative Free, Antibiotic Free, Intramuscular 03/12/2015 Influenza, Trivalent, IM (MDV) 7,03/03/2014,03/03/2013,04/05,03/10/2011 Influenza, Trivalent, Preser vative Free, Intramuscular 03/10/2024,02/14/2016,03/11/2015 Influenza, Unspecified 04/01/2023(Deferr ed: Patient Refused),03/10/2023,06/10/2022(Deferre d: Patient Refused),02/20/2022,01/08/2021(Deferre d: Patient Refused),03/10/2018,03/11/2017 Pfizer SARS-CoV-2 Monovalent Vaccination (12+ Yrs) PURPLE 03/17/2022,03/07/2021,08/11/2020,07/14 Pneumococcal Conjugate Pcv20 08/21/2024 Tdap 02/20/2022,05/22/2007 ZOSTER LIVE 08/30/2015 ZOSTER Recombinant 11/25/2017,09/13/2017 Social History Tobacco Use Types Packs/Day Years Used Date Smoking Tobacco: Never Smokeless Tobacco: Never Tobacco Cessation:Counseling Given: Not Answered Alcohol Use Standard Drinks/Week Comments No 0 (1 standard drink = 0.6 oz pur e alcohol) [facility] Utilities Answer Date Recorded In the past 12 months has e Matthew Kenney Cuisine, gas, oil, or water Inquirly threatened to shut off services in your home? No 04/01/2023 Humiliation, Afraid, Rape, and Kick questionnair e Answer Date Recorded Within the last year, have y ou been afraid of your partner or ex-partner? No 04/01/2023 Within the last year, have y ou been humiliated or emotionally abused in other ways by your partner or ex-partner? No Within the last year, have y ou been kicked, hit, slapped, or otherwise physically hurt by your partner or ex-partner? No 04/01/2023 Within the last year, have y ou been raped or forced to have any kind of sexual activity by your partner or ex-partner? No 04/01/2023 Social Connection and Isolat ion Panel [NHANES] Answer Date Recorded In a typical week, how many times do you talk on the phone with family, friends, or neighbors? More than three times a week 04/01/2023 How often do you get togethe r with friends or relatives? More than three times a week 04/01/2023 How often do you attend chur or presybeterian services? More than 4 times per year 04/01/2023 Do you belong to any clubs o r organizations such as sikh groups, unions, fraternal or athletic groups, or school groups? Yes 04/01/2023 How often do you attend meet ings of the clubs or organizations you belong to? More than 4 times per year 04/01/2023 Are you , , di vorced, , never , or living with a partner? 04/01/2023 AUDIT-C Answer Date Recorded Q1: How often do you have a drink containing alc ohol? 2-4 times a month 04/01/2023 Q2: How many drinks containi ng alcohol do you have on a typical day when you are drinking? 1 or 2 04/01/2023 Q3: How often do you have si x or more drinks on one occasion? Never 04/01/2023 Overall Financial Resource Strain (CARDIA) Answe r Date Recorded How hard is it for you to pa y for the very basics like food, housing, medical care, and heating? Not hard at all 04/01/2023 PHQ-2 Answer Date Recorded PHQ-2 Total Score (If total score is 3 or more points, staff should administer the PHQ-9) 0 11/20/2024 [facility] - Occupational Stress Questionnaire Answer Date Recorded Do you feel stress - tense, restless, nervous, or anxious, or unable to sleep at night because your mind is troubled all the time - these days? Only a little 04/01/2023 Exercise Vital Sign Answer Date Recorde d On average, how many days pe r week do you engage in moderate to strenuous exercise (like a brisk walk)? 7 days 04/01/2023 On average, how many minutes do you engage in exercise at this level? 60 min 04/01/2023 Hunger Vital Sign Answer Date Recorded Within the past 12 months, y ou worried that your food would run out before you got the money to buy more. Never true 04/01/20 Within the past 12 months, t he food you bought just didn't last and you didn't have money to get more. Never true 04/01/2023 PRAPARE - Transportation Answer Date Re corded In the past 12 months, has l ack of transportation kept you from medical appointments or from getting medications? No 03/11 In the past 12 months, has l ack of transportation kept you from meetings, work, or from getting things needed for daily living? No 04/01/2023 Housing Stability Vital Sign Answer Gaurav e Recorded In the last 12 months, was t here a time when you were not able to pay the mortgage or rent on time? No 04/01/2023 In the last 12 months, how many places have you lived? 1 04/01/2023 In the last 12 months, was t here a time when you did not have a steady place to sleep or slept in a long-term (including now)? No 04/01/2023 Personal Safety Answer Date Recorded Have you ever been in or are you currently in a harmful physical or emotional relationship or is someone making you feel afraid or unsafe? Denies 01/10/2024 Comments No Sex and Gender Information Value Date Recorded Sex Assigned at Not on file Legal Sex Female 11:54 PM [employer]TERN [employer] Gender Identity Female 02/21/2022 10:31 AM CDT Sexual Orientation Straight 03/06/2024 6: 29 AM CDT Last Filed Vital Signs Vital Sign Reading Time Taken Comments Blood Pressure 126/60 12/24/2024 12:57 PM CDT Pulse 79 12/24/2024 12:57 PM CDT Temperature 36.4 C (97.5 F) 12/24/2024 12:57 PM CDT Respiratory Rate 20 12/24/2024 12:57 PM CDT Oxygen Saturation 97% 12/24/2024 12:57 PM CDT Inhaled Oxygen Concentration - - Weight 71.7 kg (158 lb) 01/06/2025 2:40 PM CDT Height 160 cm (5' 3) 01/06/2025 2:40 PM CDT Body Mass Index 27.99 01/06/2025 2:40 PM CDT Plan of Treatment Not on file Goals Goal Patient Goal Type Associated Problems Recent Progress Patient-Stated? Author [facility] Connor Restrepo RN Note: Stand, walk for long period of time, take long car rides, travel with minimal to no pain. Medical Devices Implanted Type Area [employer] Safety Program Coordinator Device Identifier Shelf Expiration Date Model / Serial / Lot [employer] 6195-1-001 Cement Bone Simplex Gentamicin High Viscosity 40gm - [id number] Implanted:Qty: 1 on 11/15/2020 by Danny Reid MD at [facility] Right: Patella [employer] 09/07/2021 6195-1-001 / / [id number] [employer] 6195-1-001 Cement Bone Simplex Gentamicin High Viscosity 40gm - [id number] Implanted:Qty: 1 on 11/15/2020 by Danny Reid MD at [facility] Right: [employer] 09/07/2021 6195-1-001 / / [id number] [employer] [id number] Attune Cruciate Retain Cementless Knee Right 4 Component Femoral - [id number] Implanted:Qty: 1 on 11/15/2020 by Danny Reid MD at [facility] Right: Patella [employer] 05/09/2030 [id number] / / [id number] [employer] [id number] Attune 5mm Cruciate Retaining Fix Bearing Knee 4 Insert Tibial - [id number] Implanted:Qty: 1 on 11/15/2020 by Danny Reid MD at [facility] Right: Patella [employer] 08/07/2025 [id number] / / [id number] [employer] [id number] Attune S+ Cement Fix Bearing Knee 4 Baseplate Tibial - [id number] Implanted:Qty: 1 on 11/15/2020 by Danny Reid MD at [facility] Right: Patella [employer] 09/07/2030 [id number] / / [id number] [employer] Cement Bone Simplex Gentamicin High Viscosity 40gm 6195-1-001 - [id number] Implanted:Qty: 1 on 11/15/2021 by Danny Reid MD at [facility] Left: Knee [employer] 03/09/2023 6195-1-001 / / [id number] [employer] [id number] Attune S+ Cement Fix Bearing Knee 4 Baseplate Tibial - [id number] Implanted:Qty: 1 on 11/15/2021 by Danny Reid MD at [facility] Left: Knee [employer] [id number] 10/08/2031 [id number] / / [id number] [employer] Attune 5mm Cruciate Retaining Fix Bearing Knee 4 Insert Tibial [id number] - [id number] Implanted:Qty: 1 on 11/15/2021 by Danny Reid MD at [facility] Left: Knee [employer] [id number] 09/07/2026 [id number] / / [id number] [employer] Attune Cruciate Retain Cementless Knee Left 4 Component Femoral [id number] - [id number] Implanted:Qty: 1 on 11/15/2021 by Danny Reid MD at [facility] Left: Knee [employer] [id number] 11/07/2029 [id number] / / [id number] [employer] Reverse Torque Define Shoulder Kit Screw 320-20-00 - [id number] - [id number] Implanted:Qty: 1 on 12/18/2022 by Danny Reid MD at [facility] Right: Shoulder [employer] [id number] 10/30/2027 320-20-00 / [id number] / [employer] Equinoxe Lock Reverse Shoulder Glenosphere Screw Bone 320-15-05 - [id number] - [id number] Implanted:Qty: 1 on 12/18/2022 by Danny Reid MD at [facility] Right: Shoulder [employer] [id number] 10/04/2027 320-15-05 / [id number] / [employer] Equinoxe Small Reverse Posterior Augment Shoulder Right 8d Plate 320-35-04 - [id number] - [id number] Implanted:Qty: 1 on 12/18/2022 by Danny Reid MD at [facility] Right: Shoulder [employer] [id number] 10/24/2031 320-35-04 / [id number] / [employer] Component 36mm Glenoid Glenosphere Reverse Shoulder 320-31-36 - [id number] - [id number] Implanted:Qty: 1 on 12/18/2022 by Danny Reid MD at [facility] Right: Shoulder [employer] [id number] 10/15/2032 320-31-36 / [id number] / [employer] Equinoxe 4.5mm 26mm Kit Compression Lock Cap Reverse Shoulder 320-20-26 - [id number] - [id number] Implanted:Qty: 1 on 12/18/2022 by Danny Reid MD at [facility] [place] Right: Shoulder Ex[employer]ech [id number] 10/31/2027 320-20-26 / [id number] / Exactech Equinoxe 4.5mm 30mm Kit Compression Lock Cap Reverse Shoulder 320-20-30 - [id number] - [id number] Implanted:Qty: 1 on 12/18/2022 by Danny Reid MD at [facility] [place] Right: Shoulder Exactech [id number] 10/15/2027 320-20-30 / [id number] / Exactech Equinoxe 7mm 70mm Stem Humeral Sterile 300-30-07 - [id number] - [id number] Implanted:Qty: 1 on 12/18/2022 by Danny Reid MD at [facility] [place] Right: Shoulder [employer] [id number] 10/16/2032 300-30-07 / [id number] / Exactech Equinoxe Reverse Shoulder +0mm Tray Humeral Adapter 320-10-00 - [id number] - [id number] Implanted:Qty: 1 on 12/18/2022 by Danny Reid MD at [facility] [place] Right: Shoulder [employer] [id number] 11/07/2032 320-10-00 / [id number] / Exactech Equinoxe 36mm Shoulder 0mm Offset Liner Humeral Sterile 320-36-00 - [id number] - [id number] Implanted:Qty: 1 on 12/18/2022 by Danny Reid MD at [facility] [place] Right: Shoulder Ex[employer]ech [id number] 11/13/2027 320-36-00 / [id number] / Procedures Procedure Name Priority Date/Time Associated Diagnosis Comments SCREENING MAMMOGRAM BILATERAL W PHAN Schedule Routine, Read Routine (OP Routine) 01/06/2025 2:49 PM CDT Encounter for screening mammogram for malignant neoplasm of breast COMPREHENSIVE METABOLIC PANEL Routine 01/06/2025 8:00 AM CDT Fluttering heart Hypertension associated with diabetes (HCC) HOLTER MONITOR 48 HR Routine 01/01/2025 12:16 PM CDT Fluttering heart ELECTROCARDIOGRAM REPORT Routine 12/24/2024 1:37 PM CDT Fluttering heart ECG 12-LEAD Routine 12/24/2024 1:07 PM CDT Fluttering heart PAP, REFLEX HPV Routine 11/20/2024 11:08 AM CDT Well woman exam ALBUMIN CREATININE RATIO, URINE Routine 09/29/2024 8:53 AM CDT Type 2 diabetes mellitus without complication, without long-term current use of insulin (HCC) HEMOGLOBIN A1C Routine 09/29/2024 8:52 AM CDT Type 2 diabetes mellitus without complication, without long-term current use of insulin (HCC) LIPID PANEL Routine 09/29/2024 8:52 AM CDT Mixed hyperlipidemia COLONOSCOPY 01/10/2024 8:51 AM CDT DEXA AXIAL SKELETON BONE DENSITY 1 OR MORE SITES Schedule Routine, Read Routine (OP Routine) 12/17/2022 1:13 PM CDT Screening for osteoporosis HEPATITIS C SCREENING Routine 08/25/2016 from Last 3 Months or Most Recently Relevant to Health Maintenance Results * Screening Mammogram Bilateral W Phan (01/06/2025 2:49 PM CDT) Anatomical Region Laterality Modality Breast Bilateral Mammography Impressions 01/06/2025 4:30 PM CDT Bilateral No evidence of malignancy in either breast. OVERALL BI-RADS FINAL ASSESSMENT: 1 - Negative RECOMMENDATION: Recommend bilateral annual screening mammography. Narrative 01/06/2025 4:30 PM CDT EXAMINATION: Screening Mammogram Bilateral W Phan: 01/06/2025 COMPARISON: Relevant prior studies available at the time of interpretation were reviewed, including the most recent mammogram on: 01/03/2024. TECHNIQUE: Mammography was performed with 2D and digital breast tomosynthesis (DBT) images. CAD was utilized. BREAST PARENCHYMAL COMPOSITION: There are scattered areas of fibroglandular density. FINDINGS: Bilateral There is no suspicious mass, calcification, or architectural distortion in either breast. Samina Swenson SOFTWARE TEST SPECIALIST IMG MAMMO PROCEDURES Final Result * (ABNORMAL) Comprehensive metabolic panel (01/06/2025 8:00 AM CDT) Glucose 98 70 - 99 mg/dL [facility] - 01 BUN 13 8 - 27 mg/dL [facility] - 01 Creatinine, Serum 0.63 0.57 - 1.00 mg/dL [facility] - 01 eGFR 99 >59 mL/min/1.7 3 [facility] - 01 BUN/creat ratio 21 12 - 28 [facility] - 01 Sodium 139 134 - 144 mmol/L [facility] - 01 Potassium, sr 4.6 3.5 - 5.2 mmol/L [facility] - 01 Chloride 99 96 - 106 mmol/L [facility] - 01 CO2 25 20 - 29 mmol/L [facility] - 01 Calcium 9.7 8.7 - 10.3 mg/dL [facility] - 01 Protein, sr 7.4 6.0 - 8.5 g/dL [facility] - 01 Albumin 4.6 3.9 - 4.9 g/dL [facility] - 01 Globulin, Total 2.8 1.5 - 4.5 g/dL [facility] - 01 Bilirubin, Total 0.5 0.0 - 1.2 mg/dL [facility] - 01 Alk phos 141(H) 44 - 121 IU/L [facility] - 01 AST 36 0 - 40 IU/L [facility] - 01 ALT 28 0 - 32 IU/L [facility] - 01 Blood 01/06/2025 8:00 AM CDT 01/06/2025 Narrative [facility] - 01/07/2025 2:08 AM CDT Performed at: - [facility] [place] [id number] Pulp Grinder Feeder: Arnel Nicole PhD, Phone: [phone] us Quique Flores NP LAB BLOOD ORDERABLES Final Re sult [facility] - 01 * 48 HR Holter Monitor (01/01/2025 12:16 PM CDT) Anatomical Region Laterality Modality Electrocardiogra phy 01/01/2025 12:2 5 PM CDT Narrative 01/07/2025 6:51 AM CDT [address] [address] HOLTER MONITOR Patient Name: CIRA DANIEL K : 1960 Study Date: 01/01/2025 12:25:22 PM Gender: F Tech: Ref Provider: QUIQUE FLORES Height(Cm): BSA: Weight(Kg): Order Provider: QUIQUE FLORES PROCEDURES: Holter Report: Holter Monitor Report. INDICATIONS: I49.8 Other specified cardiac arrhythmias. FINDINGS: Protocol: Recording Duration (Ordered): [id number] Number of Diary entries 2025-01-01 12:25:22 CONCLUSIONS: 1. Predominant rhythm is normal sinus rhythm with a minimum heart rate of 39 beats per minute in sinus and a maximum heart rate of 145 beats per minute during a short run of SVT as will be described below. Average heart rate of 75 beats per minute. Heart rate was controlled 86% of the time, fast 2% of the time and slow 12% of the time. Total monitoring time of 1 day 23 hours 58 minutes. 2. Heart rate and rate variability is appropriate. 3. No prolonged pauses. 4. Rare PACs with 848 PACs corresponding to less than 1% of total beats. There were 3 atrial couplets. There was an asymptomatic 4 beat run of SVT at 145 beats per minute. 5. Rare PVCs with only 1 PVC corresponding to less than 1% of total beats. 6. The patient recorded no symptoms during the study. Electronically Signed By: Dr Kentrell Vela 01/07/2025 6:50:29 AM CDT Procedure Note Kentrell Vela MD - 01/07/[address] [place] [address] HOLTER MONITOR Patient Name: CIRA DANIEL K : 1960 Study Date: 01/01/2025 12:25:22 PM Gender: F Tech: Ref Provider: QUIQUE FLORES Height(Cm): BSA: Weight(Kg): Order Provider: QUIQUE FLORES PROCEDURES: Holter Report: Holter Monitor Report. INDICATIONS: I49.8 Other specified cardiac arrhythmias. FINDINGS: Protocol: Recording Duration (Ordered): [id number] Number of Diary entries 2025-01-01 12:25:22 CONCLUSIONS: 1. Predominant rhythm is normal sinus rhythm with a minimum heart rate of39 beats per minute in sinus and a maximum heart rate of 145 beats per minute during ashort run of SVT as will be described below. Average heart rate of 75 beats per minute. Heart rate was controlled 86% of the time, fast 2% of the time and slow12% of the time. Total monitoring time of 1 day 23 hours 58 minutes. 2. Heart rate and rate variability is appropriate. 3. No prolonged pauses. 4. Rare PACs with 848 PACs corresponding to less than 1% of total beats. There were 3 atrial couplets. There was an asymptomatic 4 beat run of SVT at 145 beats per minute. 5. Rare PVCs with only 1 PVC corresponding to less than 1% of totalbeats. 6. The patient recorded no symptoms during the study. Electronically Signed By: Dr Kentrell Vela 01/07/2025 6:50:29 AM CDT Quique Flores NP CV CARDIAC SERVICES PROCEDURE S Final Result * EKG 12 lead office performed (12/24/2024 1:37 PM CDT) Narrative Quique Flores NP - 12/24/2024 1:37 PM CDT Quique Flores NP 12/24/2024 1:40 PM EKG 12 lead office performed Date/Time: 12/24/2024 1:37 PM Performed by: Quique Flores NP Authorized by: Quique Flores NP Compared with previous ECG: Yes Previous ECG date: 11/23/2022 Comparison to previous ECG: SINUS RHYTHM WITH FIRST DEGREE AV BLOCK MINIMAL ST DEPRESSION Rhythm: sinus rhythm Rhythm comment: With pause Rate: normal QRS axis: Normal Conduction: Normal ST Segment: Normal T Wave Peaked: All Other Findings: No other findings Clinical impression: abnormal ECG Result [facility] Quique Flores SOFTWARE TEST SPECIALIST ECG ORDERABLES Final Result * ECG 12 lead (12/24/2024 1:07 PM CDT) Quique Flores SOFTWARE TEST SPECIALIST ECG ORDERABLES Final Result * Pap, reflex HPV (11/20/2024 11:08 AM CDT) CLINICAL INFORMATION: Aleksander Bennett Comment:WELL WOMAN LMP Aleksander Bennett Comment:UNKNOWN Previous Pap Aleksander Bennett Comment:NONE GIVEN Prev. Bx Aleksander Bennett Comment:NONE GIVEN SOURCE: Aleksander Bennett Comment:Cervix, Endocervix Pap, specimen adequacy Aleksander Bennett Comment:SATISFACTORY FOR TIRSO LUATION HPV interp Aleksander Bennett Comment: Cytology Results: Negative for intraepithelial lesion or malignancy. Atrophic pattern; predominantly parabasal cells COMMENTS Aleksander Bennett Comment: This Pap test has been evaluated with computer assisted technology. Novelties Sales Representative Jaswinder Lay Comment: BES, CT(ASCP) CT screening location: [facility] [address] [place] [address] Comment Aleksander Bennett Comment: EXPLANATORY NOTE: The Pap is a screening test for cervical cancer. It is not a diagnostic test and is subject to false negative and false positive results. It is most reliable when a satisfactory sample, regularly obtained, is submitted with relevant clinical findings and history, and when the Pap result is evaluated along with historic and current clinical information. Thin prep 11/20/2024 11:0 8 AM CDT 11/23/2024 3:10 AM CDT Result [facility] Samina Swenson SOFTWARE TEST SPECIALIST LAB CYTOLOGY ORDERABLES Fin al Result [facility] [place] [address] [address] [place] [address] * Albumin Creatinine Ratio, Urine (09/29/2024 8:53 AM CDT) Creatinine, ur 145 20 - 275 mg/dL [facility] Microalbumin, ur 0.6 See Note: mg/dL [facility] Comment: Reference Range: Reference Range Not established Microalbumin/creat ratio 4 <30 mg/g creat [facility] Comment: The ADA defines abnormalities in albumin excretion as follows: Albuminuria Category Result (mg/g creatinine) Normal to Mildly increased <30 Moderately increased 30-299 Severely increased > OR = 300 The ADA recommends that at least two of three specimens collected within a 3-6 month period be abnormal before considering a patient to be within a diagnostic category. Urine 09/29/2024 8:53 AM CDT 09/29/2024 8:54 AM CDT Narrative [facility] - 09/30/2024 1:46 AM CDT FASTING:YES FASTING: YES us Janice Molina NP LAB URINE ORDERABLES Final Resul t [facility] [address] [place] [address] * (ABNORMAL) Hemoglobin A1c (09/29/2024 8:52 AM CDT) Pathologist [facility] Hgb A1C 5.7(H) <5.7 % of total Hgb Asl AnalyticalShanon Bennett Comment: For someone without known diabetes, a hemoglobin A1c value between 5.7% and 6.4% is consistent with prediabetes and should be confirmed with a follow-up test. For someone with known diabetes, a value <7% indicates that their diabetes is well controlled. A1c targets should be individualized based on duration of diabetes, age, comorbid conditions, and other considerations. This assay result is consistent with an increased risk of diabetes. Currently, no consensus exists regarding use of hemoglobin A1c for diagnosis of diabetes for children. Blood 09/29/2024 8:52 AM CDT 09/29/2024 8:52 AM CDT Narrative [facility] - 09/30/2024 2:57 AM CDT FASTING:YES FASTING: YES us Janice Molina NP LAB BLOOD ORDERABLES Final Resul t [facility] [address] [place] [address] * (ABNORMAL) Lipid panel (09/29/2024 8:52 AM CDT) Cholesterol 151 <200 mg/dL [facility] HDL 47(L) > OR = 50 mg/dL [facility] Triglycerides 118 <150 mg/dL [facility] LDL 83 mg/dL (calc) [facility] Comment: Reference range: <100 Desirable range <100 mg/dL for primary prevention; <70 mg/dL for patients with CHD or diabetic patients with > or = 2 CHD risk factors. LDL-C is now calculated using the Kassie calculation, which is a validated novel method providing better accuracy than the Friedewald equation in the estimation of LDL-C. Fritz SS et al. BING. 2013;310(19): 0424-7199 (http://education.[employer]/faq/TIC744) Chol/HDL ratio 3.2 <5.0 (calc) [facility] Non-HDL, (LDL+VLDL) 104 <130 mg/dL (calc) [facility] Comment: For patients with diabetes plus 1 major ASCVD risk factor, treating to a non-HDL-C goal of <100 mg/dL (LDL-C of <70 mg/dL) is considered a therapeutic option. Blood 09/29/2024 8:52 AM CDT 09/29/2024 8:52 AM CDT Narrative [facility] - 09/30/2024 2:57 AM CDT FASTING:YES FASTING: YES Janice Molina NP LAB BLOOD ORDERABLES Final Resul t [facility] [address] [address] [address] * Colonoscopy (01/10/2024 8:51 AM CDT) Anatomical Region Laterality Modality Other Narrative Procedure Note Abdulkadir Gayle MD - 01/10/2024 8:51 AM CDT [facility] Patient Name: Cira Daniel Procedure Date: 01/10/2024 8:51 AM Date of : 1960 Admit Type: Outpatient Age: 63 Gender: Female Attending MD: Abdulkadir Gayle M.D. Room: [facility] ENDOSCOPY ROOM 1 Note Status: Finalized Patient Profile: This is a 63 year old female. History of largeadenoma polyps 3 years ago. No family history of coloncancer. Procedure: Colonoscopy Indications: Surveillance: Personal history of adenomatouspolyps on last colonoscopy 3 years ago, Last colonoscopy: July 2020 Referring MD: Daniel Young M.D. Providers: Abdulkadir Gayle M.D. Impression: - Three 5 mm 7 mm polyps in the descending colon sigmoid colon. Resected and retrieved. - Internal hemorrhoids. Recommendation: - Await pathology results. - Repeat colonoscopy in 4 years for surveillance. - Continue present medications. Medicines: Monitored Anesthesia Care Complications: No immediate complications. Estimated Blood Loss: Estimated blood loss: none. Procedure: Pre-Anesthesia Assessment: - Prior to the procedure, a History and Physicalwas performed, and patient medications and allergieswere reviewed. The patient's tolerance of previous anesthesia was also reviewed. The risks andbenefits of the procedure and the sedation options and risks were discussed with the patient. All questions were answered, and informed consent was obtained. Prior Anticoagulants: The patient has taken noanticoagulant or antiplatelet agents. ASA Grade Assessment: Per anesthesia note and evaluation. After reviewing the risks and benefits, the patient was deemed in satisfactory condition to undergo the procedure. The benefits, risks and alternatives of theprocedure and sedation were discussed and informed consentwas obtained. All questions were answered. Please referto the signed informed consent document in the medical record. The bowel preparation used was Miralax via split dose instruction. The bowel preparation usedwas bisacodyl tablets via split dose instruction. The scope was passed under direct vision. The Pediatric Colonoscope [id number]-[id number] was introducedthrough the anus and advanced to the the cecum, identifiedby appendiceal orifice and ileocecal valve. Thequality of the bowel preparation was good. Bowel prep was administered using a split dose. Findings: The perianal and digital rectal examinations were normal. The ascending colon and cecum appeared normal. The transverse colon appeared normal. Three polyps of 5 mm to 7 mm in size and semi sessile were noted inthe descending colon and sigmoid colon. The polyps were removed with acold snare. Resection and retrieval were complete. Internal hemorrhoids were found during retroflexion. The hemorrhoids were small. Electronically signed by Abdulkadir Gayle M.D. Abdulkadir Gayle M.D. 01/10/2024 9:59:47 AM Number of Addenda: 0 Note Initiated On: 01/10/2024 8:51 AM Procedure Code(s): --- Professional --- 16146, Colonoscopy, flexible; with removal of tumor(s), polyp(s), or other lesion(s) by snare technique Diagnosis Code(s): --- Professional --- Z86.010, Personal history of colonic polyps K64.8, Other hemorrhoids D12.4, Benign neoplasm of descending colon CPT copyright 2020 [employer] [place] [employer]. All rights reserved. The codes documented in this report are preliminary and upon bill poster installer reviewmay be revised to meet current compliance requirements. Recognized by the [place] [employer] for promoting quality in endoscopy Abdulkadir Gayle MD ENDOSCOPY PROCEDURES Final Result * Dexa Axial Skeleton Bone Density 1 Or 2 Site (12/17/2022 1:13 PM CDT) Anatomical Region Laterality Modality Body N/A Other 12/17/2022 11:4 7 PM CDT Narrative 12/17/2022 11:48 PM CDT EXAM DESCRIPTION: DEXA AXIAL SKELETON BONE DENSITY 1 OR MORE SITES REASON FOR STUDY: 62 y/o year old F with given history of: screening for bone cancer Screening. [employer] Safety Program Coordinator/Model: [employer] SL (S/N [id number]) CLINICAL INFORMATION: Current height: 63 inches Maximum height: 63 inches Weight: 202 pounds Risk factors: Postmenopausal COMPARISON: None available FINDINGS: AP LUMBAR SPINE L1-L4: Total BMD is 1.016 g/cm2 T-score is -0.3 LEFT HIP: Total BMD is 0.761 g/cm2 T-score is -1.5 Femoral neck BMD is 0.653 g/cm2 T-score is -1.8 FRAX: 10 year risk for a major osteoporotic fracture is 8.5 %, 10 year risk for a hip fracture is 0.9 % IMPRESSION: Low Bone Mass. REFERENCE: Bone mineral density: Normal (T-score above or = -1.0) Low bone mass (T-score between -1.0 and -2.5) replaces the previously used term osteopenia Osteoporosis (T-score = or below -2.5) Medical evaluation for secondary causes of low bone mineral density may be appropriate. FRAX is a World Health Organization validated fracture risk assessment tool that calculates a person's 10 year probability of a major osteoporosis related fracture and hip fracture. According to the National Osteoporosis Foundation guidelines, postmenopausal women and men age 50 or older with low bone mass and a 10 year probability of a major osteoporosis related fracture = or greater than 20% or a 10 year probability of a hip fracture = or greater than 3% should be considered for treatment. For further information, including treatment recommendations, please refer to the 2019 ISCD Official Positions (http://www.iscd.org) and the NOF's Clinician's Guide to Prevention and Treatment of Osteoporosis (http://www.nof.org/professionals/clinical-guidelines) THIS IS AN ELECTRONICALLY VERIFIED FINAL REPORT 12/17/2022 11:48 PM - Electronically signed by Harmeet Patricia M.D. MF: MYRNA Report ID: [id number] Reading Location: [id number] Procedure Note Harmeet Patricia MD - 12/17/2022 EXAM DESCRIPTION: DEXA AXIAL SKELETON BONE DENSITY 1 OR MORE SITES REASON FOR STUDY: 62 y/o year old F with given history of: screeningfor bone cancer Screening. [employer] Safety Program Coordinator/Model: [employer] (S/N [id number]) CLINICAL INFORMATION: Current height: 63 inches Maximum height: 63 inches Weight: 202 pounds Risk factors: Postmenopausal COMPARISON: None available FINDINGS: AP LUMBAR SPINE L1-L4: Total BMD is 1.016 g/cm2 T-score is -0.3 LEFT HIP: Total BMD is 0.761 g/cm2 T-score is -1.5 Femoral neck BMD is 0.653 g/cm2 T-score is -1.8 FRAX: 10 year risk for a major osteoporotic fracture is 8.5 %, 10 year risk fora hip fracture is 0.9 % IMPRESSION: Low Bone Mass. REFERENCE: Bone mineral density: Normal (T-score above or = -1.0) Low bone mass (T-score between -1.0 and -2.5) replaces thepreviously used term osteopenia Osteoporosis (T-score = or below -2.5) Medical evaluation for secondary causes of low bone mineral density may be appropriate. FRAX is a World Health Organization validated fracture risk assessmenttool that calculates a person's 10 year probability of a major osteoporosisrelated fracture and hip fracture. According to the National OsteoporosisFoundation guidelines, postmenopausal women and men age 50 or older with low bonemass and a 10 year probability of a major osteoporosis related fracture = or greater than 20% or a 10 year probability of a hip fracture = or greaterthan 3% should be considered for treatment. For further information, including treatment recommendations, please referto the 2019 ISCD Official Positions (http://www.iscd.org) and the NOF's Clinician's Guide to Prevention and Treatment of Osteoporosis (http://www.nof.org/professionals/clinical-guidelines) THIS IS AN ELECTRONICALLY VERIFIED FINAL REPORT 12/17/2022 11:48 PM - Electronically signed by Harmeet Patricia M.D. MF: MYRNA Report ID: [id number] Reading Location: [place] [address] Samina Swenson SOFTWARE TEST SPECIALIST IMG DXA PROCEDURES Final Re sult * HEPATITIS C SCREENING (08/25/2016) Pathologist [facility] HEP C Normal Historical Provider HEALTH MAINTENANCE Final Result from Last 3 Months or Most Recently Relevant to Health Maintenance Insurance [facility] Advance Directives For more information, please contact: [phone] * Full Code (Latest Code Status on File) Date Activated Date Inactivated Comments 01/10/2024 8:37 AM 01/10/2024 2:43 PM * Full Code Date Activated Date Inactivated Comments 01/10/2024 8:37 AM 01/10/2024 8:37 AM * Full Code Date Activated Date Inactivated Comments 11/15/2021 12:25 PM 11/15/2021 8:52 PM * Full Code Date Activated Date Inactivated Comments 11/15/2020 2:35 PM 11/16/2020 8:33 PM * Full Code Date Activated Date Inactivated Comments 08/01/2020 8:29 AM 08/01/2020 3:20 PM Care Teams Strapper And Buffer Relationship Specialty Start Date End Date Daniel Young MD [address] [place] [place] [address] PCP - General Family Medicine 11/30/21 Arcadio Kinney PA [address] [place] [address] [address] [place] [address] Physician Procurement Coordinator Orthopedic Surgery 11/15/20 Alicia Long PA [address] [place] [address] [address] [place] [address] Physician Procurement Coordinator Orthopedic Surgery 11/15/21
--- OUTSIDE RECORDS SUMMARY | 2025-01-12 14:04 | XMS_ITS | Clinical Summary ---
Author Organization [facility] [employer] Address [facility] [address] Care Team Providers Care Fire Control Mechanic Name Role Phone Dariusz Aceves MD Primary Care Provider Unavail able Source Comments [facility] [employer],non-owned Affiliates and Associated Physician Practices is amultiple site organization consisting of ambulatory clinics and hospital sitesin [place], [place], [place] and [place]. This disclosure is being madepursuant to the Care Everywhere program and may not contain all information available regarding this patient. Last updated 18.[facility] [employer] Allergies No known active allergies Medications * Be aware that medications may not be up to date on this document. Always verify current medications with the patient. pravastatin (PRAVACHOL) 20 MG tablet once daily 6 Active lisinopril (PRINIVIL;ZESTR IL) 5 MG tablet Take 5 mg by mouth once daily Active Calcium 500 MG Take by mouth 3 times daily with meals Active multivitamin daily (THERAGRAN) tablet Take 1 Tab by mouth daily with food Active spironolactone (ALDACTONE) 100 MG tablet Take 100 mg by mouth once daily Active miSOPROStol (CYTOTEC) 200 MCG tablet Take 1 tablet by mouth 2 times daily 60 tablet 1 7 Active LORazepam (ATIVAN) 1 MG tablet 7 Active Loteprednol Etabonate (ALREX OP) Active benzonatate (TESSALON) 200 MG capsuleIndicati ons:Acute maxillary sinusitis, recurrence not specified Take 1 capsule by mouth 3 times daily as needed for Cough 30 capsule 9 Active Additional Information Patient not taking.Reported on 08/17/2018 Active Problems Problem Noted Date Diagnosed Date S/P laparoscopic surgery 04/16/2016 Family History Medical History Relation Name Comments Diabetes Other 1 CVA Other 2 Alzheimer's Disease Other 3 Relation Name Status Comments Other 1 Other 2 Other 3 Social History Tobacco Use Types Packs/Day Years Used Date Smoking Tobacco: Never Smokeless Tobacco: Never Alcohol Use Standard Drinks/Week Comments No 0 (1 standard drink = 0.6 oz pur e alcohol) RARELY Comments No Sex and Gender Information Value Date Recorded Sex Assigned at Not on file Legal Sex Female 6:06 AM PLANNING ASSISTANT Gender Identity Not on file Sexual Orientation Not on file Last Filed Vital Signs Vital Sign Reading Time Taken Comments Blood Pressure 118/74 08/17/2018 10:24 AM CDT Pulse 84 08/17/2018 10:24 AM CDT Temperature 38.1 C (100.6 F) 08/17/2018 10:24 AM CDT Respiratory Rate 16 08/17/2018 10:24 AM CDT Oxygen Saturation 98% 08/17/2018 10:24 AM CDT Inhaled Oxygen Concentration - - Weight 95.3 kg (210 lb) 08/17/2018 10:24 AM CDT Height 158.8 cm (5' 2.5) 08/17/2018 10:24 AM CD T Body Mass Index 37.8 08/17/2018 10:24 AM CDT Plan of Treatment Health Maintenance Due Date Last Done Comments COLOGUARD (AGES 45-75) - COLON CA SCREENING 1960 COLON MONITORING 1960 COLONOSCOPY - COLON CA SCREENING 1960 CT COLONOGRAPHY - COLON CA SCREENING 1960 Colorectal Cancer Screening 1960 FIT - COLON CA SCREENING 1960 FLEX SIG - COLON CA SCREENING 1960 MAMMOGRAM 1960 HIV SCREENING 01/25/1975 HEPATITIS C SCREENING 01/21/1978 DTAP/TDAP/TD VACCINES (1 - Tdap) 01/25/1979 PNEUMOCOCCAL VACCINE 50+ (1 of 1 - PCV) 01/25/2010 ZOSTER VACCINE (1 of 2) 01/25/2010 SCREENING FOR DIABETES 04/18/2019 6, 04/18/2016, 04/18/2016, Additional history exists COVID-19 VACCINE (2023- season) 2024 DEPRESSION SCREENING 06/10/2024 INFLUENZA VACCINE (#1) 2025 7, 02/15/2016, 03/12/2015, Additional history exists Respiratory Syncytial Virus (RSV) Vaccine Pt: or over 60 yrs (1 - 1-dose 75+ series) 01/25/2035 HEPATITIS B VACCINE Aged Out No longe r eligible based on patient's age to complete this topic HIB VACCINE Aged Out No longer eligi ble based on patient's age to complete this topic HPV VACCINE Aged Out No longer eligi ble based on patient's age to complete this topic MENINGOCOCCAL (Group B) VACCINE SHARED DECISION-MAKING Aged Out No longer eligible based on patient's age to complete this topic MENINGOCOCCAL GROUPS A/C/Y/W VACCINE Aged Out No longer eligible based on patient's age to complete this topic Procedures Procedure Name Priority Date/Time Associated Diagnosis Comments COMPREHENSIVE METABOLIC PANEL AM Draw 04/18/2016 3:35 AM PLANNING ASSISTANT from Last 3 Months or Most Recently Relevant to Health Maintenance Results * (ABNORMAL) COMPREHENSIVE METABOLIC PANEL (04/18/2016 3:35 AM PLANNING ASSISTANT) Glucose 127(H) 74 - 106 mg/dL 04/18/2016 4:46 AM PLANNING ASSISTANT [facility] Sodium 137 136 - 145 mmol/L 04/18/2016 4:46 AM PLANNING ASSISTANT [facility] Potassium 4.0 3.5 - 5.1 mmol/L 04/18/2016 4:46 AM PLANNING ASSISTANT [facility] Chloride 103 98 - 107 mmol/L 04/18/2016 4:46 AM PLANNING ASSISTANT [facility] CO2 29 22 - 31 mmol/L 04/18/2016 4:46 AM PLANNING ASSISTANT [facility] Calcium 8.1(L) 8.5 - 10.1 mg/dL 04/18/2016 4:46 AM PLANNING ASSISTANT [facility] Anion Gap 5 5 - 20 mmol/L 04/18/2016 4:46 AM PLANNING ASSISTANT [facility] BUN 4(L) 7 - 21 mg/dL 04/18/2016 4:46 AM PLANNING ASSISTANT [facility] Creatinine 0.61 0.50 - 1.30 mg/dL 04/18/2016 4:46 AM PLANNING ASSISTANT [facility] Alkaline Phosphatase 68 38 - 126 U/L 04/18/2016 4:46 AM PLANNING ASSISTANT [facility] ALT 34 13 - 61 U/L 04/18/2016 4:46 AM PLANNING ASSISTANT [facility] AST 30 5 - 40 U/L 04/18/2016 4:46 AM PLANNING ASSISTANT [facility] Protein Total 6.7 6.4 - 8.2 gm/dL 04/18/2016 4:46 AM PLANNING ASSISTANT [facility] Albumin 3.2(L) 3.4 - 5.0 gm/dL 04/18/2016 4:46 AM PLANNING ASSISTANT [facility] Bilirubin Total 0.3 0.2 - 1.0 mg/dL 04/18/2016 4:46 AM PLANNING ASSISTANT [facility] eGFR by MDRD >60 >60 mL/min/1.7 3m2 04/18/2016 4:46 AM PLANNING ASSISTANT [facility] eGFR by MDRD >60 >60 mL/min/1.7 3m2 04/18/2016 4:46 AM PLANNING ASSISTANT [facility] Blood BLOOD SPECIMEN / Unknown 04/18/2016 3:35 AM PLANNING ASSISTANT 04/18/2016 4:07 AM PLANNING ASSISTANT us Jacquie Jerez MD LAB - CHEMISTRY ORDERABLES Final Result Performing Organization Address City/State/[facility] Co de Phone Number [facility] [id number] [place] [address] from Last 3 Months or Most Recently Relevant to Health Maintenance Insurance [facility] Advance Directives * Full Code (Latest Code Status on File) Date Activated Date Inactivated Comments 04/16/2016 4:23 PM 04/18/2016 2:08 PM * Full Code Date Activated Date Inactivated Comments 04/22/2009 12:14 PM 04/24/2009 1:38 AM Care Teams Fire Control Mechanic Relationship Specialty Start Date End Date Dariusz Aceves MD PCP - General Internal Medicine 10/18/15
--- OUTSIDE RECORDS SUMMARY | 2025-01-12 14:04 | XMS_ITS | Clinical Summary ---
Author Organization [facility] Address [address] [place] [address] Care Team Providers Care Education Dean Name Role Phone Arcadio Kinney Unavailable [phone] Alicia Long Unavailable [phone] Daniel Young MD Primary Care Provider [phone] Allergies Active Allergy Reactions Criticality Noted Date Comments Hydrocodone Other (See comments),Hypotensio n High 01/25/2021 Insomnia, loss of appetite Nsaids (Non-Steroidal Anti-Inflammatory Drug) Other (See comments) Low 11/15/2021 Gastric bypass Tissue Adhesive Blisters High 12/31/2022 Dermabond Medications B.ani/L.aci/L.jelena/ L.plan/L.Vega (PROBIOTIC FORMULA ORAL) Take by mouth daily Active nktyj-wh-4-dha-epa -phospho-ast 1,[id number] mg capsule Take by mouth Active vit J-R-nklswx-zinc-cammie tein 226-90-0.8-5 mg capsule Take 1 capsule [...] 4 (four) times a day 025 Discontin ued(Kody nt Reported) Active Problems Problem Noted Date Diagnosed Date Well woman exam 11/20/2024 Assessment & Plan (11/20/2024 11:13 AM CDT): Doing well, call with any ammonium nitrate crystallizer concerns. Continue monthly self-breast exams. We did [...] weeks with a left lower extremity reflux flue gas analyst study pending this she is likely going [...] (05/04/2020): Added automatically from request for surgery [id number] Carpal tunnel syndrome, bilateral 10/22/2017 04/01/2024 Overview (10/22/2017): Added automatically from request for surgery [id number] Class 2 severe obesity due t o [...] Pure hypercholesterolemia 10/24/2013 Overview (09/14/2016): PURE HYPERCHOLESTEROLEM Encounters Date Type Department Care Team Description 01/07/2025 Results [facility] [address] [address] Quique Flores NP Comprehensive metabolic panel, 48 HR Holter Monitor 01/06/2025 2:20 PM CDT - 01/06/2025 11:59 PM CDT Hospital Encounter [facility] [address] [place] [address] Encounter for screening mammogram for malignant neoplasm of breast Discharge Disposition: Discharge to home or self care 01/01/2025 12:15 PM CDT - 01/01/2025 11:59 PM CDT Hospital Encounter [facility] [address] [place] [address] Fluttering heart Discharge Disposition: Discharge to home or self care 12/24/2024 1:00 PM CDT Office Visit [facility] [address] [phone] Quique Flores NP Fluttering heart (Primary Dx); Hypertension associated with diabetes (HCC); BMI 29.0-29.9,adult 12/23/2024 Nurse Triage [facility] [address] [phone] Daniel Young MD 11/25/2024 Results Follow-Up [facility] [address] [facility] [address] [place] [address] Samina Swenson NP Pap, reflex HPV, Screening Mammogram Bilateral W Phan 11/20/2024 11:00 AM CDT Office Visit [facility] at [address] [phone] Samina Swenson NP Well woman exam (Primary Dx); Encounter for screening mammogram for malignant neoplasm of breast from Last 3 Months Immunizations Immunization Administration Dates Next Due COVID-19 mRNA (Broadersheet) 0.3 m L (30 mcg) vaccine (12 [...] 02/20/2022,05/22/2007 ZOSTER LIVE 08/30/2015 ZOSTER Recombinant 11/25/2017,09/13/2017 Surgical History Surgery Date Site/Laterality Comments OTHER SURGICAL HISTORY 06/10/2006 - 06/09/2007 Mini Face Lift OTHER SURGICAL HISTORY 06/10/2006 - 06/09/2007 Brachioplasty GASTRIC BYPASS 06/10/2004 - 06/09/2005 Gastric bypass OTHER SURGICAL HISTORY 06/10/2006 - 06/09/2007 Bilateral upper arm lift OTHER SURGICAL HISTORY 06/10/2006 - 06/09/2007 Bilateral breast lift BELT ABDOMINOPLASTY 06/10/2006 - 06/09/2007 lencho white OTHER SURGICAL HISTORY 06/10/2008 - 06/09/2009 Bilateral upper thigh lift VENTRAL HERNIA REPAIR 06/10/2008 - 06/09/2009 ventral hernia repair SECTION 06/10/1983 - 06/09/1984 section CARPAL TUNNEL RELEASE Bilateral COLONOSCOPY 06/06/2010 TOTAL KNEE ARTHROPLASTY 11/15/2020 Right JOINT REPLACEMENT Left knee replacement REVERSE TOTAL SHOULDER ARTHROPLASTY 12/18/2022 Right COLONOSCOPY 07/11/2020 - 08/07/2020 COSMETIC SURGERY 2007, 2008, 2010 BARIATRIC SURGERY 2005 SECTION 1984 Medical History Medical History Date Comments Hypertension Hypertension Hyperlipidemia Hyperlipidemia Peptic ulceration 2017 Arthritis Lower back, and hands Heart murmur Diabetes insipidus pre/borderlin e Carpal tunnel syndrome, bilateral 10/22/2017 Added automatically from request for surgery [id number] History of total knee arthro plasty, left 12/24/2021 Rotator cuff tear arthropath y of right shoulder 11/29/2022 Rotator cuff arthropathy of right shoulder 12/14/2022 Diabetes mellitus (HCC) 09/18/21 Family History Medical History Relation Name Comments Cancer Father Manish altamirano Diabetes Father Manish altamirano Diabetes mellit us; Hearing loss Father Manish altamirano Heart disease Father Manish altamirano Hyperlipidemia Father Manish altamirano Hypertension Father Manish altamirano Hypertension; Prostate cancer Father Manish altamirano Cancer -pros patrick; Diabetes Mother Zachery Altamirano Diabetes melli tus; Hyperlipidemia Mother Zachery Altamirano Obesity Mother Zachery Altamirano Other Mother Zachery Altamirano pacemaker; Thyroid disease Mother Zachery Altamirano Breast cancer Mother's Sister Breast cancer Other maternal great aunt Relation Name Status Comments Father Manish altamirano Mother Zachery Altamirano Mother's Sister Alive Other maternal great aunt Alive Social History Tobacco Use Types Packs/Day Years Used Date Smoking Tobacco: Never Smokeless Tobacco: Never Tobacco Cessation:Counseling Given: Not Answered Alcohol Use Standard Drinks/Week Comments No 0 (1 standard drink = 0.6 oz pur e alcohol) [place] Utilities Answer Date Recorded In the past 12 months has [facility] [employer], oil, or water [employer] threatened to shut off services in your [...] 04/01/2023 How often do you attend chur ch or orthodox services? More than 4 times per year 04/01/2023 Do you belong to any clubs o r organizations such as anabaptist groups, unions, fraternal or athletic groups, or [...] staff should administer the PHQ-9) 0 11/20/2024 [facility] [place] of Occupat ional Health - Occupational Stress [...] place to sleep or slept in a prison (including now)? No 04/01/2023 Personal Safety Answer Date Recorded Have you ever been in or are you currently in a harmful physical or emotional relationship or is someone making you feel afraid or unsafe? Denies 01/10/2024 Comments No Sex and Gender Information Value Date Recorded Sex Assigned at Not on file Legal Sex Female 11:54 PM CRM ANALYST Gender Identity Female 02/21/2022 10:31 AM CDT Sexual Orientation Straight 03/06/2024 6: 29 AM CDT Obstetrics History Para Term AB IAB SAB Ectopic Multiple Livin g Live Births 1 1 1 1 1 Date Outcome GA Total Labor Labor/2nd/3rd Weight Sex Type Anes PTL Kathleen A1 A5 Name Clin 4 Term M CS-Un spec Living Last Filed Vital Signs Vital Sign Reading [...] 01/06/2025 2:40 PM CDT Plan of Treatment Health Maintenance Due Date Last Done Comments Osteoporosis Screening-Bone Density Scan 12/17/2024 12/17/2022, 03/10/2010 Influenza Vaccine (#1) 2025 , 03/10/2023, 02/20/2022, Additional history exists Hemoglobin A1C 03/31/2025 09/29/2024, 03/10, 09/25/2023, Additional history exists Dilated Eye Exam 04/01/2025 Postponed f rom 1960 (Provider's clinical decision) Foot Exam 04/01/2025 04/01/2024 Albumin Creatinine Ratio, Urine 09/29/2025 09/29/2024, 09/25/2023 Lipid Panel 09/29/2025 09/29/2024, 03/10, 03/26/2023, Additional history exists Cervical Cancer Screening 11/20/20252024, 11/15/2023, 11/12/2022, Additional history exists Depression Screening 11/20/2025 11/20/2024, 04/01/2024, 11/15/2023, Additional history exists Regular Well Visit/Exam 18-64 11/20/2025 11/20/2024, 04/01/2024, 11/15/2023, Additional history exists Breast Cancer Screening-Mammogram 01/06/2026 01/06/2025, 01/03/2024, 12/17/2022, Additional history exists eGFR 01/06/2026 01/06/2025, 04/2 07/2024, 03/25/2024, Additional history exists Colon Cancer Screening-Colonoscopy 01/09/2027 01/10/2024, 08/01/2020, 06/06/2010, Additional history exists DTaP/Tdap/Td Vaccine (3 - Td or Tdap) 02/21/2032 02/20/2022, 05/22/2007 Hepatitis C Screening Completed 08/25/2016 Zoster Vaccine Completed 11/25/2017, 04/0 11/2017, 08/30/2015 Colon Cancer Screening-CT Colonography Discontinued 01/10/2024, 08/01/2020, 06/06/2010, Additional history exists Colon Cancer Screening-DNA Stool Discontinued 01/10/2024, 08/01/2020, 06/06/2010, Additional history exists Colon Cancer Screening-FIT Discontinued 01/09, 08/01/2020, 06/06/2010, Additional history exists Colon Cancer Screening-Sigmoidoscopy Discontinued 01/10/2024, 08/01/2020, 06/06/2010, Additional history exists Covid-19 Vaccine Completed 03/10/2024, 01/2022, 03/07/2021, Additional history exists Hepatitis B Screening Completed 03/25/2024 Pneumococcal vaccine <65 Completed 08/21/2024 Goals Goal Patient Goal Type Associated Problems Recent Progress Patient-Stated? Author [facility] Connor Restrepo, RN Note: Stand, walk for long period of time, take long car rides, travel with minimal to no pain. Medical Devices Implanted Type Area Children Teacher Device Identifier Shelf Expiration Date Model / Serial / Lot [employer] 6195-1-001 Cement Bone Simplex Gentamicin High Viscosity 40gm - [id number] Implanted:Qty: 1 on 11/15/2020 by Danny Reid MD at [facility] Right: Pat[employer] 09/07/2021 6195-1-001 / / [id number] [employer] 6195-1-001 Cement Bone Simplex Gentamicin High Viscosity 40gm - [id number] Implanted:Qty: 1 on 11/15/2020 by Danny Reid MD at [facility] Right: [employer] 09/07/2021 6195-1-001 / / [id number] [employer] [id number] Attune Cruciate Retain Cementless Knee Right 4 Component Femoral - [id number] Implanted:Qty: 1 on 11/15/2020 by Danny Reid MD at [facility] Right: Patella [employer] 05/09/2030 [id number] / / [id number] [employer] [id number] Attune 5mm Cruciate Retaining Fix Bearing Knee 4 Insert Tibial - [id number] Implanted:Qty: 1 on 11/15/2020 by Danny Reid MD at [facility] Right: Patella [employer] 08/07/2025 [id number] / / [id number] [employer] [id number] Attune S+ Cement Fix Bearing Knee 4 Baseplate Tibial - [id number] Implanted:Qty: 1 on 11/15/2020 by Danny Reid MD at [facility] Right: Patella [employer] 09/07/2030 [id number] / / [id number] [employer] Cement Bone Simplex Gentamicin High Viscosity 40gm 6195-1-001 - [id number] Implanted:Qty: 1 on 11/15/2021 by Danny Reid MD at [facility] Left: Knee [employer] 03/09/2023 6195-1-001 / / [id number] [employer] [id number] Attune S+ Cement Fix Bearing Knee 4 Baseplate Tibial - [id number] Implanted:Qty: 1 on 11/15/2021 by Danny Reid MD at [facility] Left: Knee [employer] [id number] 10/08/2031 [id number] / / [id number] [employer] Attune 5mm Cruciate Retaining Fix Bearing Knee 4 Insert Tibial [id number] - [id number] Implanted:Qty: 1 on 11/15/2021 by Danny Reid MD at [facility] Left: Knee [employer] [id number] 09/07/2026 [id number] / / [id number] [employer] Attune Cruciate Retain Cementless Knee Left 4 Component Femoral [id number] - [id number] Implanted:Qty: 1 on 11/15/2021 by Danny Reid MD at [facility] Left: Knee [employer] [id number] 11/07/2029 [id number] / / [id number] [employer] Reverse Torque Define Shoulder Kit Screw 320-20-00 - [id number] - [id number] Implanted:Qty: 1 on 12/18/2022 by Danny Reid MD at [facility] Right: Shoulder [employer] [id number] 10/30/2027 320-20- / [id number] / [employer] Equinoxe Lock Reverse Shoulder Glenosphere Screw Bone 320-15-05 - [id number] - [id number] Implanted:Qty: 1 on 12/18/2022 by Danny Reid MD at [facility] Right: Shoulder [employer] [id number] 10/04/2027 320-15- / [id number] / [employer] Equinoxe Small Reverse Posterior Augment Shoulder Right 8d Plate 320-35-04 - [id number] - [id number] Implanted:Qty: 1 on 12/18/2022 by Danny Reid MD at [facility] Right: Shoulder [employer] [id number] 10/24/2031 320-35-04 / [id number] / Exactech Component 36mm Glenoid Glenosphere Reverse Shoulder [facility]-31-36 - [id number] - [id number] Implanted:Qty: 1 on 12/18/2022 by Danny Reid MD at [facility] Right: Shoulder [employer] [id number] 10/15/2032 320-31-36 / [id number] / [employer] Equinoxe 4.5mm 26mm Kit Compression Lock Cap Reverse Shoulder 320-20- - [id number] - [id number] Implanted:Qty: 1 on 12/18/2022 by Danny Reid MD at [facility] Right: Shoulder [employer] [id number] 10/31/2027 320-20-26 / [id number] / [employer] Equinoxe 4.5mm 30mm Kit Compression Lock Cap Reverse Shoulder 320-20-30 - [id number] - [id number] Implanted:Qty: 1 on 12/18/2022 by Danny Reid MD at [facility] Right: Shoulder [employer] [id number] 10/15/2027 320-20-30 / [id number] / [employer] Equinoxe 7mm 70mm Stem Humeral Sterile 300-30- - [id number] - [id number] Implanted:Qty: 1 on 12/18/2022 by Danny Reid MD at [facility] Right: Shoulder [employer] [id number] 10/16/2032 300-30-07 / [id number] / [employer] Equinoxe Reverse Shoulder +0mm Tray Humeral Adapter 320-10 - [id number] - [id number] Implanted:Qty: 1 on 12/18/2022 by Danny Reid MD at [facility] Right: Shoulder [employer] [id number] 11/07/2032 320-10-00 / [id number] / [employer]actech Equinoxe 36mm Shoulder 0mm Offset Liner Humeral Sterile 320-36-00 - [id number] - [id number] Implanted:Qty: 1 on 12/18/2022 by Danny Reid MD at [facility] Right: Shoulder [employer] [id number] 11/13/2027 320-36-00 / [id number] / Procedures Procedure Name Priority Date/Time Associated [...] architectural distortion in either breast. Samina Swenson COCOA BEAN ROASTER HELPER IMG MAMMO PROCEDURES Final Result * (ABNORMAL) [...] 01/07/2025 2:08 AM CDT Performed at: - [address] [id number] Mechanical Engineer: Arnel Nicole PhD, Phone: [phone] us Quique Flores COCOA BEAN ROASTER HELPER LAB BLOOD ORDERABLES Final Re sult [facility] - 01 * 48 HR Holter Monitor (01/01/2025 12:16 PM CDT) Anatomical Region Laterality Modality Electrocardiogra phy 01/01/2025 12:2 5 PM CDT Narrative 01/07/2025 6:51 AM CDT [address] [place] [address] HOLTER MONITOR Patient Name: CIRA DANIEL K : 1960 Study Date: 01/01/2025 12:25:22 PM Gender: F Tech: Ref Provider: QUIQUE FLORES Height(Cm): BSA: Weight(Kg): Order Provider: QUIQUE FLORES PROCEDURES: Holter Report: Holter Monitor Report. INDICATIONS: I49.8 Other specified cardiac arrhythmias. FINDINGS: Protocol: Recording Duration (Ordered): [id number] Number of Diary entries 2025-01-01 12:25:22 CONCLUSIONS: [...] Procedure Note Kentrell Vela MD - 01/07/[address] [place] [address] HOLTER MONITOR Patient Name: CIRA DANIEL K : 1960 Study Date: 01/01/2025 12:25:22 PM Gender: F Tech: Ref Provider: QUIQUE FLORES Height(Cm): BSA: Weight(Kg): Order Provider: QUIQUE FLORES PROCEDURES: Holter Report: Holter Monitor Report. INDICATIONS: I49.8 Other specified cardiac arrhythmias. FINDINGS: Protocol: Recording Duration (Ordered): [id number] Number of Diary entries 2025-01-01 12:25:22 CONCLUSIONS: [...] No other findings Clinical impression: abnormal ECG Quique Flores NP ECG ORDERABLES Final Result * ECG 12 lead (12/24/2024 1:07 PM CDT) Quique Flores NP ECG ORDERABLES Final Result * Pap, reflex HPV (11/20/2024 11:08 AM CDT) CLINICAL INFORMATION: Aleksander Bennett Comment:WELL WOMAN LMP Aleksander Bennett Comment:UNKNOWN Previous Pap Aleksander Bennett Comment:NONE GIVEN Prev. Bx Aleksander Bennett Comment:NONE GIVEN SOURCE: Aleksadner Bennett Comment:Cervix, Endocervix Pap, specimen adequacy Aleksander Bennett Comment:SATISFACTORY FOR TIRSO LUATION HPV interp Aleksander Bennett Comment: Cytology Results: Negative for intraepithelial lesion or malignancy. Atrophic pattern; predominantly parabasal cells COMMENTS Aleksander Bennett Comment: This Pap test has been evaluated with computer assisted technology. Consulting Utility Forester Jaswinder Lay Comment: BES, CT(ASCP) CT screening location: [place] [address] [place], [place] [address] Comment Aleksander Bennett Comment: EXPLANATORY NOTE: The [...] 8 AM CDT 11/23/2024 3:10 AM CDT Samina wSenson COCOA BEAN ROASTER HELPER LAB CYTOLOGY ORDERABLES Fin al Result [facility] [address] [place] [address] * Albumin Creatinine Ratio, Urine (09/29/2024 8:53 [...] 09/30/2024 1:46 AM CDT FASTING:YES FASTING: YES Janice Molina COCOA BEAN ROASTER HELPER LAB URINE ORDERABLES Final Resul t Performing Organization Address City/[facility]/ZIP Co de Phone Number [facility] [address] [address] [address] * (ABNORMAL) Hemoglobin A1c (09/29/2024 8:52 AM CDT) Hgb A1C 5.7(H) <5.7 % of total Hgb Manas Informatic-Beny Bennett Comment: For someone without known diabetes, [...] BLOOD ORDERABLES Final Resul t [facility] [address] [place] [address] * (ABNORMAL) Lipid panel (09/29/2024 8:52 AM CDT) [facility] Cholesterol 151 <200 mg/dL [facility] [...] factors. LDL-C is now calculated using the Fritz-John calculation, which is a validated novel method providing better accuracy than the Friedewald equation in the estimation of LDL-C. Fritz SWAIN et al. BING. 2013;310(19): 8814-7463 (http://education.[employer]F Technologies.HelloFax/faq/IXQ736) Chol/HDL ratio 3.2 <5.0 (calc) [facility] [...] LAB BLOOD ORDERABLES Final Resul t [facility] [address] [address] * Colonoscopy (01/10/2024 8:51 AM CDT) Anatomical Region Laterality Modality Other Narrative Procedure Note Abdulkadir Gayle MD - 01/10/2024 8:51 AM CDT [facility] Patient Name: Cira Daniel Procedure Date: 01/10/2024 8:51 AM Date of : 1960 Admit Type: Outpatient Age: 63 Gender: Female Attending MD: Abdulkadir Gayle M.D. Room: [facility] ROOM 1 Note Status: Finalized Patient [...] under direct vision. The Pediatric Colonoscope [id number] was introducedthrough the anus and advanced to [...] 8:51 AM Procedure Code(s): --- Professional --- 77696, Colonoscopy, flexible; with removal of tumor(s), polyp(s), or other lesion(s) by snare technique Diagnosis Code(s): --- Professional --- Z86.010, Personal history of colonic polyps K64.8, Other hemorrhoids D12.4, Benign neoplasm of descending colon CPT copyright 2020 [place] [employer]. All rights reserved. The codes documented in this report are preliminary and upon sanitation truck driver reviewmay be revised to meet current compliance requirements. Recognized by the [place] [employer] for promoting quality [...] history of: screening for bone cancer Screening. Children Teacher/Model: Omegawave (S/N [id number]) CLINICAL INFORMATION: Current height: 63 inches Maximum [...] Harmeet Patricia M.D. MF: MYRNA Report ID: [id number] Reading Location: [address] Note Harmeet Patricia MD - 12/17/2022 EXAM DESCRIPTION: DEXA AXIAL SKELETON BONE DENSITY 1 OR MORE SITES REASON FOR STUDY: 62 y/o year old F with given history of: screeningfor bone cancer Screening. Children Teacher/Model: Omegawave (S/N [id number]) CLINICAL INFORMATION: Current height: 63 inches Maximum [...] Harmeet Patricia M.D. MF: MYRNA Report ID: [id number] Reading Location: [place] [address] Samina Swenson NP IMG DXA PROCEDURES Final Re sult * HEPATITIS C SCREENING (08/25/2016) Pathologist [facility] HEP C Normal Historical Provider HEALTH MAINTENANCE Final Result from Last 3 Months or Most Recently Relevant to Health Maintenance Insurance [facility] CHO[facility] H[facility]/PPO Address: [address] CHOICE PLUS [facility] HMO/PPO Address: [address] [place] [address] [employer] [facility] Advance Directives For more information, please contact: [phone] * Full Code (Latest Code Status on [...] 8:29 AM 08/01/2020 3:20 PM Care Teams Education Dean Relationship Specialty Start Date End Date Daniel Young MD [address] [place] [address] PCP - General Family Medicine 11/30/21 Arcadio Kinney PA [facility] [place] [address] [address] [employer] Orthopedic Surgery 11/15/20 Alicia Long PA [address] [place] [address] [address] [place] [address] [address] [employer] Orthopedic Surgery 11/15/21
--- OUTSIDE RECORDS SUMMARY | 2025-01-12 14:04 | XMS_ITS | Encounter Summary ---
Author Organization [facility] Address [address] [place] [address] Care Team Providers Care Curtain Feller Blindstitch Name Role Phone Arcadio Kinney Unavailable Alicia Long Unavailable [phone] Daniel Young MD Primary Care Provider Encounter Details Date Type Department Care Team (Late st Contact Info) Description 01/07/2025 Results [facility] [place] [address] [place] [address] Chelle Celis, CAN WORKER [address] [place] [address] Comprehensive metabolic panel, 48 HR Holter Monitor Social History Tobacco Use Types Packs/Day Years Used Date Smoking Tobacco: Never Smokeless Tobacco: Never Alcohol Use Standard Drinks/Week Comments No 0 (1 standard drink = 0.6 oz pur e alcohol) [facility] Utilities Answer Date Recorded In the past 12 months has e [employer], gas, oil, or water [employer] threatened to shut off services in your [...] How often do you attend chur or yazdanism services? More than 4 times per year 04/01/2023 Do you belong to any clubs o r organizations such as methodist groups, unions, fraternal or athletic groups, or [...] staff should administer the PHQ-9) 0 11/20/2024 [facility] - Occupational Stress [...] place to sleep or slept in a jail (including now)? No 04/01/2023 Personal Safety Answer Date Recorded Have you ever been in or are you currently in a harmful physical or emotional relationship or is someone making you feel afraid or unsafe? Denies 01/10/2024 Comments No Sex and Gender Information Value Date Recorded Sex Assigned at Not on file Legal Sex Female 11:54 PM SECTION HOUSEKEEPER Gender Identity Female 02/21/2022 10:31 AM CDT Sexual Orientation Straight 03/06/2024 6: 29 AM CDT documented as of this encounter Plan of Treatment Not on file documented as of this encounter Goals Goal Patient Goal Type Associated Problems Recent Progress Patient-Stated? Author [facility] No Connor Baugh, RN Note: Stand, walk for long period of time, take long car rides, travel with minimal to no pain. documented as of this encounter Visit Diagnoses Not on filedocumented in this encounter Care Teams Curtain Feller Blindstitch Relationship Specialty Start Date End [place] [address] PCP - General Family Medicine 11/30/21 Arcadio Kinney PA [address] [place] [address] [address] [place] [address] Physician Student Specialist Orthopedic Surgery 11/15/20 Alicia Long PA [address] [place] [address] [address] [place] [address] Physician Student Specialist Orthopedic Surgery 11/15/21 documented as of this encounter
--- OUTSIDE RECORDS SUMMARY | 2025-01-12 14:04 | XMS_ITS | Encounter Summary ---
Author Organization [facility] Healthcare Address [address] [place] [address] Care Team Providers Care Molecular Pathologist Name Role Phone Arcadio Kinney Unavailable Alicia Long Unavailable [phone] Daniel Young MD Primary Care Provider [phone] Encounter Details Date Type Department Care Team (Late st Contact Info) Description 11/25/2024 Results Follow-Up [facility] [address] [place] [address] [address] [place] [address] Samina Swenson, SWITCHBOARD RECEPTIONIST [address] [place] [address] Pap, reflex HPV, Screening Mammogram Bilateral W Phan Social History Tobacco Use Types Packs/Day Years Used Date Smoking Tobacco: Never Smokeless Tobacco: Never Alcohol Use Standard Drinks/Week Comments No 0 (1 standard drink = 0.6 oz pur e alcohol) [facility] Utilities Answer Date Recorded In the past 12 months has e [employer], gas, oil, or water company threatened to shut off services in your [...] week 04/01/2023 How often do you attend up health system or yarsani services? More than 4 times per year 04/01/2023 Do you belong to any clubs o r organizations such as scientologist groups, unions, fraternal or athletic groups, or [...] should administer the PHQ-9) 0 11/20/2024 [facility] - Occupational [...] place to sleep or slept in a care home (including now)? No 04/01/2023 Personal Safety Answer Date Recorded Have you ever been in or are you currently in a harmful physical or emotional relationship or is someone making you feel afraid or unsafe? 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
--- OUTSIDE RECORDS SUMMARY | 2025-01-12 14:04 | XMS_ITS | Encounter Summary ---
Author Organization [facility] Address [address] [place] [address] Phone Care Team Providers Care Systems Software Engineer Name Role Phone Dariusz Aceves MD Primary Care Provider [phone] Arcadio Kinney Unavailable [phone] Daniel Young MD Primary Care Provider [phone] Dariusz Aceves MD Primary Care Provider [phone] Alicia Long Unavailable [phone] Daniel Young MD Primary Care Provider [phone] Encounter Details Date Type Department Care Team (Late st Contact Info) Description 08/24/2017 Orders Only 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 us Historical Provider LAB BLOOD ORDERABLES Araceli l Result documented in this encounter Visit Diagnoses Not on filedocumented in this encounter Additional Health Concerns Infection Onset Date Last Indicated Resolved Time COVID: Suspected 10/17/2021 10/17/2021 10/17/2021 2:25 PM CDT COVID: Suspected 10/17/2021 10/17/2021 10/17/2021 8:30 PM CDT COVID19 10/17/2021 10/17/2021 10/27/2021 3:05 AM CDT COVID: Recovered Comment:Added based on recent COVID infection. 10/27/2021 10/27/2021 02/24/2022 3:05 AM C DT COVID: Suspected 10/28/2022 10/28/2022 10/28/2022 11:04 AM CDT documented as of this encounter Care Teams Systems Software Engineer Relationship Specialty Start Date End Date Dariusz Aceves MD PCP - General 09/07/16 11/09/21 Daniel Young MD [address] [place] [address] PCP - General 11/10/21 11/14/21 Dariusz Aceves MD [address] [place] [address] [place] [address] PCP - General 11/15/21 11/29/21 Daniel Young MD [address] [place] [address] PCP - General Family Medicine 11/30/21 Arcadio Kinney PA [address] [facility] [address] [place] [address] Physician Rag Sorter And Cutter Orthopedic Surgery 11/15/20 Alicai Long PA [address] [facility] [address] [place] [address] Physician Rag Sorter And Cutter Orthopedic Surgery 11/15/21 documented as of this encounter
--- NOTE | 2025-01-12 14:10 | ECG_ITS ---
Test Date: 2025-01-12 15:47:47 Measurements Intervals [place] Rate: 70 P: 1 MA: 229 QRS: 32 QRSD: 89 T: 6 QT: 397 QTc: 429 Interpretive Statements SINUS RHYTHM WITH FIRST DEGREE AV BLOCK DELAYED PRECORDIAL R/S TRANSITION CONSIDER INFERIOR INFARCT, AGE INDETERMINATE BORDERLINE T WAVE ABNORMALITY- ANTERIOR LEADS BASELINE ARTIFACT- I, II, III, AVR, AVL, AVF, V1-V6 ABNORMAL ECG No previous ECG available for comparison Electronically Signed On 01-12-2025 16:00:27 CDT by Jace Rodriguez D.O.
[2025-01-12] MEDS: ONDANSETRON INJ 4 MG/2 ML VIAL IV PUSH (14:36)
[2025-01-12] MEDS: MORPHINE SULFATE (*CRX) 4 MG/ML INJ IV PUSH (14:36)
--- NOTE | 2025-01-12 14:47 | ED.FALL ---
HPI - Fall General Chief Complaint: Fall <Hoda Rizo PA-C - Last Filed: 01/12/25 19:00> Stated Complaint: Fall <Hoda Rizo PA-C - Last Filed: 01/12/25 19:00> Time Seen by Provider: 01/12/25 13:41 <MARLENE Cohen Last Filed: 01/12/25 19:00> Source: patient <MARLENE Cohen Last Filed: 01/12/25 19:00> Mode of arrival: EMS <MARLENE Cohen Last Filed: 01/12/25 19:00> Limitations: no limitations <Hoda Rizo PA-C - Last Filed: 01/12/25 19:00> History of Present Illness HPI Narrative: Patient is a 64-year-old female who presents the ED via EMS with report of a fall. Patient reports she was on her front porch trying to fix a vacuum spot cleaner when she lost her balance and fell. She does not believe that she hit her head, but is unsure. Denies loss of consciousness or syncope. Complains of pain to her left knee and right wrist. Was unable to ambulate. EMS did splint the knee and wrist. Patient denies numbness, neck or back pain, chest pain, abdominal pain. Does report having some diarrhea today. Patient is not on any anticoagulation. <Hoda Rizo PA-C - Last Filed: 01/12/25 19:00> Related Data Home Medications: Home Medications ?Medication ?Instructions ?Recorded ?Confirmed ?Last Taken ?Type atorvastatin 10 mg tablet 40 mg PO DAILY 09/07/20 10/12/24 Unknown History loteprednol etabonate 0.2 % eye 1 drp EACH EYE BID 09/07/20 10/12/24 Unknown History drops,suspension (Alrex) geecjkcr-reg-qecis acid 0.4 1 tablet PO DAILY 09/07/20 10/12/24 Unknown History mg-lycopene 300 mcg-lutein 250 mcg tablet (Centrum Silver) vit C 250 mg-vit E 90 mg-zinc 40 1 tablet PO BID 09/07/20 10/12/24 Unknown History mg-copper 1 lt-lgwdli-xywgpd capsule (PreserVision AREDS-2) bimatoprost 0.03 % eye drops 1 drp EACH EYE USEASDIRECTD 05/27/22 10/12/24 Unknown History timolol maleate 0.5 % eye drops 1 drp EACH EYE USEASDIRECTD 05/27/22 10/12/24 Unknown History nifedipine 30 mg tablet,extended 30 mg PO DAILY 04/26/24 10/12/24 Unknown History release tirzepatide 15 mg/0.5 mL 15 mg subcut WEEKLY 04/26/24 10/12/24 Unknown History subcutaneous pen injector (Mounjaro) Probiotic 220 mg BYMOUTH DAILY 10/12/24 10/12/24 Unknown History ascorbic acid (vitamin C) 1,000 mg 1 g PO DAILY 10/12/24 10/12/24 Unknown History tablet (C-1000) azelastine 0.05 % eye drops 1 drp EACH EYE ONCE 10/12/24 10/12/24 Unknown History cholecalciferol (vitamin D3) 50 50 mcg PO DAILY 10/12/24 10/12/24 Unknown History mcg (2,000 unit) tablet (D3 DOTS) coenzyme Q10 200 mg capsule (Co 200 mg PO DAILY 10/12/24 10/12/24 Unknown History Q-10) collagen Plus hydrdolyzed 2,000 mg BYMOUTH DAILY 10/12/24 10/12/24 Unknown History magnesium 200 mg tablet 200 mg PO DAILY 10/12/24 10/12/24 Unknown History polydextrose 2.5 gram chewable 1,000 g PO DAILY 10/12/24 10/12/24 Unknown History tablet (FiberWell) spironolactone 100 mg tablet 100 mg PO DAILY 10/12/24 10/12/24 Unknown History (Aldactone) <Hoda Rizo PA-C - Last Filed: 01/12/25 19:00> Allergies/Adverse Reactions: Allergies Allergy/AdvReac Type Severity Reaction Status Date / Time hydrocodone Allergy Hypotension Verified 10/12/24 09:38 NSAIDS (Non-Steroidal AdvReac Unknown Verified 10/12/24 09:38 Anti-Inflamma dermabond Allergy Mild Unknown Uncoded 10/12/24 09:41 <Hoda Rizo PA-C - Last Filed: 01/12/25 19:00> Review of Systems Review of Systems: All systems reviewed & are unremarkable except as noted in HPI. <Hoda Rizo PA-C - Last Filed: 01/12/25 19:00> All systems reviewed & are unremarkable except as noted in HPI and below <Hoda Rizo PA-C - Last Filed: 01/12/25 19:00> PMFSH Past Medical History Medical History: Medical History Arthritis Pre-diabetes Hypertension <Hoda Rizo PA-C - Last Filed: 01/12/25 19:00> Surgical History Surgical History: Surgical History History of gastric bypass 2005 H/O hernia repair H/O plastic surgery x 2 2006- breast lift 2009 [place] teeth removed x 1 History of delivery x 1 1983 <Hoda Rizo PA-C - Last Filed: 01/12/25 19:00> Family History Family History: Family History Father Malignant neoplasm of prostate Diabetes mellitus Hypertension Heart disease Cerebrovascular accident Mother Diabetes mellitus Alzheimer disease Sibling Diabetes mellitus Hypertension Grandparent Diabetes mellitus <Hoda Rizo PA-C - Last Filed: 01/12/25 19:00> Social History Social History: Social History Smoking status: Never smoker Alcohol intake: never Substance use: never Living arrangements: with family <Hoda Rizo PA-C - Last Filed: 01/12/25 19:00> Exam Narrative: GENERAL: Well appearing, well-nourished, non-toxic, in no acute distress. HEAD: Normocephalic, atraumatic. RESPIRATORY: Airway patent, respirations nonlabored. Clear to auscultation bilaterally, no rales, rhonchi, wheezing. CARDIOVASCULAR: Regular rate and rhythm without murmurs, rubs, or gallops. Peripheral pulses are intact and palpable. ABDOMINAL: Soft, nontender, nondistended. Normoactive BS. MUSCULOSKELETAL: No gross deformities. Limited range of motion of left knee flexion and extension due to pain. Tenderness to palpation along superior and lateral joint spaces. Mild swelling noted. Limited range of motion of right wrist due to pain. Tenderness to palpation over R distal radius region. Minimal significant tenderness over R distal ulnar region. No significant swelling over right elbow joint or right shoulder joint. Sensation intact. Able to wiggle fingers. Capillary refill intact. SKIN: Warm, dry, normal color. NEURO: A&O X3. Speech clear. Cranial nerves II-XII grossly intact. No ataxic movements. PSYCHIATRIC: Appropriate mood and affect. Normal interaction. <Hoda Rizo PA-C - Last Filed: 01/12/25 19:00> Course FACILITY REHAB DIRECTOR/PA Physician Supervision I did review the chart and agree with the management , assisted in applying knee immobilizer <Narciso Tabares MD - Last Filed: 01/12/25 18:16> Vital Signs Vital signs: Vital Signs Temperature 97.9 F 01/12/25 13:00 Pulse Rate 70 01/12/25 13:00 Respiratory Rate 16 01/12/25 13:00 Blood Pressure 129/65 01/12/25 13:00 Pulse Oximetry 100 01/12/25 13:00 Oxygen Delivery Room Air 01/12/25 13:00 Temperature 97.9 F 01/12/25 13:00 Pulse Rate 92 01/12/25 17:31 Respiratory Rate 19 01/12/25 17:31 Blood Pressure 107/62 01/12/25 17:31 Pulse Oximetry 100 01/12/25 17:30 Oxygen Delivery Nasal Cannula 01/12/25 15:00 Oxygen Flow Rate 2 01/12/25 15:00 <Hoda Rizo PA-C - Last Filed: 01/12/25 19:00> Vital Signs Temperature 97.9 F 01/12/25 13:00 Pulse Rate 70 01/12/25 13:00 Respiratory Rate 16 01/12/25 13:00 Blood Pressure 129/65 01/12/25 13:00 Pulse Oximetry 100 01/12/25 13:00 Oxygen Delivery Room Air 01/12/25 13:00 Temperature 97.9 F 01/12/25 13:00 Pulse Rate 92 01/12/25 17:31 Respiratory Rate 19 01/12/25 17:31 Blood Pressure 107/62 01/12/25 17:31 Pulse Oximetry 100 01/12/25 17:30 Oxygen Delivery Nasal Cannula 01/12/25 15:00 Oxygen Flow Rate 2 01/12/25 15:00 <Narciso Tabares MD - Last Filed: 01/12/25 18:16> MDM - Fall MDM Narrative Medical decision making narrative: Patient presented to ED s/p glf, pain to L knee and R wrist. Does not believe she hit her head. Vital signs are stable upon arrival. CT brain and cervical spine negative for traumatic findings X-ray of right wrist showing distal radius fracture with ulnar styloid fracture. Patient placed in sugar-tong splint. X-ray of left knee with distal femur angulated/displaced fracture. Does not appear to involve left knee prosthesis. Patient given small dose of Versed and was able to be placed in a knee immobilizer. Discussed case with Dr. Chappell, orthopedics, recommended transfer to tertiary center given prior knee replacement/prosthesis. Patient has previously seen Dr. Reid, orthopedics @ [facility]. Will attempt transfer to [facility]. Discussed case with Dr. Nunez, [facility] @ [facility], accepted patient for transfer. Patient in agreement with plan and need for transfer. Awaiting transportation. <Hoda Rizo PA-C - Last Filed: 01/12/25 19:00> Medical Records Attestation: I reviewed the patient's medical records. <Hoda Rizo PA-C - Last Filed: 01/12/25 19:00> Imaging Data Attestation: I personally reviewed and interpreted this imaging study as follows: <Hoda Rizo PA-C - Last Filed: 01/12/25 19:00> Radiologist's impression: ITS Impressions Cervical Spine CT 01/12/25 16:[address] CERVICAL SPINE: Straightening and slight reversal of the normal curvature of the cervical spine, likely muscular in origin. Degenerative disease, without acute fracture. IMPRESSION CT HEAD: No acute intracranial hemorrhage or suspicious mass effect. Head CT 01/12/25 16:[address] CERVICAL SPINE: Straightening and slight reversal of the normal curvature of the cervical spine, likely muscular in origin. Degenerative disease, without acute fracture. IMPRESSION CT HEAD: No acute intracranial hemorrhage or suspicious mass effect. Knee X-Ray 01/12/25 16:17 Impression: 1: Old oblique displaced distal femoral diaphyseal fracture with dorsal angulation and ventral displacement. Wrist X-Ray 01/12/25 16:19 Impression: 1: Comminuted displaced impaction fracture distal radial metaphysis. 2: Ulnar styloid avulsion fracture. <MARLENE Cohen Last Filed: 01/12/25 19:00> Discharge Plan Discharge Clinical Impression: Fracture of distal end of left femur, History of left knee replacement, Fracture of distal end of radius, Fracture of right ulnar styloid, Fall from ground level <MARLENE Cohen Last Filed: 01/12/25 19:00> Patient Disposition: Acute Care Hospital <MARLENE Cohen Last Filed: 01/12/25 19:00> Condition: Stable <MARLENE Cohen Last Filed: 01/12/25 19:00> Patient Language: German <MARLENE Cohen Last Filed: 01/12/25 19:00> Prescriptions: No Action bimatoprost 0.03 % drops 1 drp EACH EYE USEASDIRECTD timolol maleate 0.5 % drops 1 drp EACH EYE USEASDIRECTD nifedipine 30 mg tablet extended release 30 mg PO DAILY Mounjaro 15 mg/0.5 mL pen injector 15 mg SUBCUT WEEKLY ascorbic acid (vitamin C) [C-1000] 1,000 mg tablet 1 g PO DAILY FiberWell 2.5 gram tablet,chewable 1,000 g PO DAILY Probiotic 220 mg BYMOUTH DAILY cholecalciferol (vitamin D3) [D3 DOTS] 50 mcg (2,000 unit) tablet 50 mcg PO DAILY spironolactone [Aldactone] 100 mg tablet 100 mg PO DAILY coenzyme Q10 [Co Q-10] 200 mg capsule 200 mg PO DAILY magnesium 200 mg tablet 200 mg PO DAILY azelastine 0.05 % drops 1 drp EACH EYE ONCE collagen Plus hydrdolyzed 2,000 mg BYMOUTH DAILY atorvastatin 10 mg tablet 40 mg PO DAILY PreserVision AREDS-2 250-90-40-1 mg capsule 1 tablet PO BID Centrum Silver 0.4-300-250 mg-mcg-mcg tablet 1 tablet PO DAILY Alrex 0.2 % drops,suspension 1 drp EACH EYE BID <Hoda Rizo PA-C - Last Filed: 01/12/25 19:00> Follow-up/Referrals: UNKNOWN,DOCTOR [Primary Care Provider] - <Hoda Rizo PA-C - Last Filed: 01/12/25 19:00>
[2025-01-12] MEDS: HYDROmorphone HCL INJ (*CRX) 2 MG/ML VIAL 0.5 MG IV PUSH (16:34)
[2025-01-12] MEDS: SODIUM CHLORIDE 0.9% IV 1,000 ML 999 ML IV CONT (16:34)
[2025-01-12] MEDS: MIDAZOLAM HCL (*CRX) 2 MG/2 ML VIAL IV PUSH (17:22)
== END 2025-01-12 18:35 | disposition short-term general hospital (02) ==
PROVIDERS: Emergency Provider Physician Assistant
DX: S59.291A Other physeal fracture of lower end of radius, right arm, initial encounter for closed fracture (principal); S52.611A Displaced fracture of right ulna styloid process, initial encounter for closed fracture; S79.192A Other physeal fracture of lower end of left femur, initial encounter for closed fracture; I10 Essential (primary) hypertension; R73.03 Prediabetes; M19.90 Unspecified osteoarthritis, unspecified site; Z98.84 Bariatric surgery status; Z96.652 Presence of left artificial knee joint; Z79.85 Long-term (current) use of injectable non-insulin antidiabetic drugs; Z79.899 Other long term (current) drug therapy; I44.0 Atrioventricular block, first degree; R94.31 Abnormal electrocardiogram [ECG] [EKG]; M50.30 Other cervical disc degeneration, unspecified cervical region; W18.39XA Other fall on same level, initial encounter
CPT/HCPCS: 29125; 70450; 72125; 73100; 73560; 93005; 96361; 96374; 96375; 99285; J1171; J2250; J2270; J2405; J7030